=== PATIENT | female | born 1955 | race Asian ===

== ENCOUNTER 2021-03-07 14:17 | Outpatient (REF) | payer BC, SELFPAY ==
--- NOTE | ~2021-03-07 | XR_ITS ---
EXAMINATION: XR HIP, LEFT CLINICAL INFORMATION: Osteoarthritis COMPARISON: May 11, 2015 TECHNIQUE: Two views of the left hip. FINDINGS: There is no evidence of acute fracture or dislocation of the left hip. Left hip joint space is maintained without significant degenerative change. No destructive bony lesion identified. No evidence of femoral head collapse. Osteitis pubis is present. XR/XR hip LT min 2V IMPRESSION: Osteitis pubis. No significant bony abnormality of the left hip identified.
== END 2021-03-07 14:18 | disposition home or self-care (01) ==
LOC: HO.XRAY 14:17
PROVIDERS: PCP Internal Medicine; Visit Provider Internal Medicine
DX: M16.12 Unilateral primary osteoarthritis, left hip (principal)
CPT/HCPCS: 73502

== ENCOUNTER 2021-09-13 15:02 | Outpatient (REF) | payer BC, SELFPAY ==
--- NOTE | ~2021-09-13 | MM_ITS ---
EXAMINATION: MM SCREENING DIGITAL BREAST TOMOSYNTHESIS, BILATERAL CLINICAL INFORMATION: Screening. Asymptomatic. The lifetime risk of breast cancer based on the Tyrer-Cuzick Model is 2%. COMPARISON: Mammography: 07/12/2020, 03/20/2019, 03/05/2018 TECHNIQUE: Digital breast tomosynthesis is performed in both the craniocaudal and mediolateral oblique views along with computer-aided detection (CAD). Synthesized 2D images are generated from the tomosynthesis. FINDINGS: There are scattered areas of fibroglandular density (ACR BI-RADS breast composition Category b). There are no significant masses, abnormal calcifications, or other abnormalities. Parenchymal pattern is similar to prior study. No significant changes. MM/MM tomosynthesis screening BI IMPRESSION: No mammographic evidence of malignancy. ASSESSMENT: BI-RADS 1: Negative RECOMMENDATION: Routine annual mammography screening. This patient's information was entered into a reminder system with a target due date for their next mammogram.
== END 2021-09-13 15:03 | disposition home or self-care (01) ==
LOC: HO.MAMMO 15:02
PROVIDERS: PCP Internal Medicine; Visit Provider Internal Medicine
DX: Z12.31 Encounter for screening mammogram for malignant neoplasm of breast (principal)
CPT/HCPCS: 77063; 77067

== ENCOUNTER 2022-09-18 14:59 | Outpatient (REF) | payer MEDICARE, SELFPAY ==
--- NOTE | ~2022-09-18 | MM_ITS ---
EXAMINATION: MM SCREENING DIGITAL BREAST TOMOSYNTHESIS, BILATERAL CLINICAL INFORMATION: Screening. Asymptomatic. The lifetime risk of breast cancer based on the Tyrer-Cuzick Model is 3%. COMPARISON: Mammography: 09/13/2021, 07/12/2020, 07/20/2019 TECHNIQUE: Digital breast tomosynthesis is performed in both the craniocaudal and mediolateral oblique views along with computer-aided detection (CAD). Synthesized 2D images are generated from the tomosynthesis. FINDINGS: There are scattered areas of fibroglandular density (ACR BI-RADS breast composition Category b). There are no significant masses, abnormal calcifications, or other abnormalities. Parenchymal pattern is similar to prior studies. There is no developing density or architectural abnormality. The axilla and skin contours are unremarkable. No significant changes. MM/MM tomosynthesis screening BI IMPRESSION: No mammographic evidence of malignancy. ASSESSMENT: BI-RADS 1: Negative RECOMMENDATION: Routine annual mammography screening. This patient's information was entered into a reminder system with a target due date for their next mammogram.
== END 2022-09-18 15:00 | disposition home or self-care (01) ==
LOC: HO.MAMMO 14:59
PROVIDERS: PCP Internal Medicine; Visit Provider Internal Medicine
DX: Z12.31 Encounter for screening mammogram for malignant neoplasm of breast (principal)
CPT/HCPCS: 77063; 77067

== ENCOUNTER 2022-09-20 14:33 | Outpatient (REF) | payer MEDICARE, SELFPAY ==
--- NOTE | ~2022-09-20 | XR_ITS ---
EXAMINATION: XR FOOT, RIGHT CLINICAL INFORMATION: Pain COMPARISON: None TECHNIQUE: AP, lateral, and oblique views of the right foot. FINDINGS: Bone alignment is normal. No fracture or dislocation is seen. There is mild arthritis at the first MTP and talar fibular joint with small osteophytes. There is calcaneal spur. XR/XR foot RT min 3V IMPRESSION: Arthritis at the first MTP and talar navicular joints. Plantar calcaneal spur.
== END 2022-09-20 14:34 | disposition home or self-care (01) ==
LOC: HO.XRAY 14:33
PROVIDERS: Visit Provider Internal Medicine
DX: M79.671 Pain in right foot (principal); E11.9 Type 2 diabetes mellitus without complications
CPT/HCPCS: 73630

== ENCOUNTER 2023-02-18 10:33 | Outpatient (REF) | payer MEDICARE, SELFPAY | END 2023-02-18 10:34 | disposition home or self-care (01) | LOC: HO.HOSX 10:33 | PROVIDERS: Visit Provider Orthopaedic Surgery | DX: Z13.89 Encounter for screening for other disorder (principal) ==

== ENCOUNTER 2023-07-03 05:26 | Emergency (ER) | payer MEDICARE, SELFPAY ==
--- NOTE | ~2023-07-03 | XR_ITS ---
EXAMINATION: XR SHOULDER, RIGHT CLINICAL INFORMATION: Pain COMPARISON: None available. TECHNIQUE: Three views of the right shoulder. FINDINGS: No acute fracture or dislocation. Small glenohumeral marginal osteophytes. Small marginal osteophytes along the acromioclavicular joint. Intra-articular calcifications present in the superior aspect of the acromioclavicular joint. Osseous excrescences between the coracoid and clavicle at the expected location of the coracoclavicular ligaments. This may relate to old trauma to these ligaments. Soft tissues otherwise unremarkable. XR/XR shoulder RT min 2V IMPRESSION: * No acute fracture or dislocation. * Mild glenohumeral and acromioclavicular degenerative change. * Degenerative intra-articular debris/calcifications in the acromioclavicular joint.
[2023-07-03 05:26] VITALS: BP 141/79; PULSE 100; RESP 20; TEMP 36.5; O2SAT 98; BMI 22.1
--- NOTE | 2023-07-03 05:52 | PC.NURSE ---
Pt tearful at the bedside. Reports right shoulder pain that radiates down the right arm, neck, and upper back, 10/. Right shoulder pain x 2 years that has worsen since last Saturday and became severe yesterday. Pt arrives wearing a sling and reports inability to move extremity. Radial pulse present. Skin warm and appropriate to color, dry. Right shoulder x-ray ordered. Pending physician twan.
--- NOTE | 2023-07-03 06:17 | ED_ITS ---
HPI - Extremity Problem General Chief complaint: Extremity Injury, Upper Stated complaint: R shoulder pain/neck pain Time Seen by Provider: 07/03/23 06:05 Source: patient Mode of arrival: ambulatory Limitations: no limitations History of Present Illness HPI Narrative: Patient comes to the emergency room accompanied by her . Patient went on vacation and while they were there, patient started developing right-sided neck pain radiating towards the suprascapular area, shoulder and supraclavicular area. Patient states that when she turns her head towards the right ear hurts more. Patient states she has chronic issues with her shoulder. Patient denies any neck rigidity, no fever or chills. Related Data Previous Rx's Medication Instructions Recorded diazepam 2 mg tablet 2 mg PO DAILY PRN muscle spasm #5 07/03/23 tabs tramadol 50 mg tablet 50 mg PO BID PRN pain #7 tabs 07/03/23 Allergies Allergy/AdvReac Type Severity Reaction Status Date / Time No Known Allergies Allergy Unverified 08/18/20 17:53 [No Known Allergies*] Review of Systems Review of Systems: Constitutional : No Weight loss, No Fever, No Chills, No Night Sweats, No Fatigue, No Malaise ENT/Mouth : No Hearing loss, No Ear Pain, No Nasal Congestion, No Sinus Pain, No Hoarseness, No sore throat, No Rhinorrhea, No Swallowing Difficulty Eyes: No Eye Pain, No Swelling, No Redness, No Foreign Body, No Discharge, No Vision Changes Cardiovascular : No Chest Pain, No SOB, No Dyspnea on Exertion, No Orthopnea, No Edema, No Palpitations Respiratory : No Cough, No Sputum, No Wheezing, No Smoke Exposure, No Dyspnea Gastrointestinal : No Nausea, No Vomiting, No Diarrhea, No Constipation, No abdominal Pain, No Hematochezia, No Melena Genitourinary : no irregular bleeding, No Dysuria, No Urinary Frequency, No Hematuria, No Urinary Incontinence, No Urgency, No Flank Pain, No Urinary Flow Changes, No Hesitancy Musculoskeletal : Complaining of chronic right shoulder pain, complaining of new right-sided neck pain worse with head rotation towards the right, complaining of suprascapular and supraclavicular pain No Myalgias, No Joint Swelling Skin : No Skin Lesions, No rash Neuro : No Weakness, No Numbness, No Paresthesias, No Loss of Consciousness, No Dizziness, No Headache Psych : No Anxiety/Panic, No Depression, No SI/HI/AH/VH, No Social Issues, Heme/Lymph: No Bruising, No Bleeding,No Lymphadenopathy Endocrine : No Polyuria, No Polydipsia, No Temperature Intolerance [facility] Past Medical History Medical History (Updated 07/03/23 @ 06:24 by Mireya Zacarias MD) Diabetes Social History Social History Smoked in Last 30 Days: No Use of substances other than those prescribed or required for medical reasons: No Advance Directives: No Advance Directives Information Provided: Yes Physical Exam Vital Signs: Vital Signs: Last Vital Signs Temp 97.7 F 07/03/23 05:26 Pulse 100 07/03/23 05:26 Resp 20 07/03/23 05:26 BP 141/79 H 07/03/23 05:26 Pulse Ox 98 07/03/23 05:26 O2 Del Method Room Air 07/03/23 05:26 BMI result Body Mass Index 22.1 Const: Other: Appearance: Alert. Oriented X3. No acute distress. Eyes: Pupils equal, round and reactive to light. ENT: Pharynx normal. Neck: Normal inspection. Neck supple. No lymph nodes noted. No crepitus CVS: Normal heart rate and rhythm. Pulses normal. Normal S1 and S2 Respiratory: No respiratory distress. Breath sounds normal. No Wheezing. No rales Abdomen: Soft and nontender. No rigidity. No distention. Skin: Skin warm and dry. Normal skin color. Normal skin turgor. Extremities: Patient has pain to palpation over the right shoulder, both anterior posterior and lateral, pain to palpation over the suprascapular area, pain to palpation over the supraclavicular area, patient complaining of worsening pain when she moves her head towards the right Neuro: Oriented X 3. No motor deficit. No sensory deficit. Moving all extremities. No slurred speech. CN 2 through 12 grossly intact Psych: calm, cooperative, normal affect Medications Administered Discontinued Medications Generic Name Dose Route Start Last Admin Trade Name Freq PRN Reason Stop Dose Admin Diazepam 2 mg 07/03/23 06:17 07/03/23 06:30 Diazepam 2 Mg Tablet PO 07/03/23 06:18 2 mg ONCE ONE Administration Ketorolac Tromethamine 60 mg 07/03/23 06:17 08/02/23 06:30 Ketorolac Tromethamine 60 Mg/2 Ml Vial IM 07/03/23 06:18 60 mg ONCE ONE Administration Medical Decision Making Medical Decision Making MDM Narrative: My interpretation of x-ray of the shoulder: No fracture, there seems to be a calcification at the acromioclavicular joint. Patient's pain may be secondary to calcific tendinitis versus bursitis. Also, patient may have new onset torticollis, patient was given 1 dose of IM Toradol and p.o. diazepam. Patient has been taking cyclobenzaprine without any relief. Differential Diagnosis Differential Diagnoses: The differential diagnosis associated with the presentation includes (Tendinitis, bursitis, fracture, dislocation, torticollis) Independent Interpretation I performed an independent interpretation of an: Plain X-Ray Radiology Impression Discussion of test interpretation with radiology: I have reviewed the radiologist's reading. Radiologist Impression: FINDINGS: No acute fracture or dislocation. Small glenohumeral marginal osteophytes. Small marginal osteophytes along the acromioclavicular joint. Intra-articular calcifications present in the superior aspect of the acromioclavicular joint. Osseous excrescences between the coracoid and clavicle at the expected location of the coracoclavicular ligaments.? This may relate to old trauma to these ligaments. Soft tissues otherwise unremarkable. XR/XR shoulder RT min 2V IMPRESSION: *? No acute fracture or dislocation. *? Mild glenohumeral and acromioclavicular degenerative change. *? Degenerative intra-articular debris/calcifications in the acromioclavicular joint. Discharge Plan Discharge Clinical Impression: Chronic pain in right shoulder, Acute torticollis Patient Disposition: Home, Self-Care Instructions: Spasmodic Torticollis (ED), Shoulder Pain (ED) Additional Instructions: Please follow-up with your primary care physician and with your orthopedist tomorrow. You may need an MRI of your shoulder. If you have any worsening or new symptoms, please return to the emergency room or call 911 Prescriptions: New tramadol 50 mg tablet 50 mg PO BID PRN (Reason: pain) Qty: 7 0RF diazepam 2 mg tablet 2 mg PO DAILY PRN (Reason: muscle spasm) Qty: 5 0RF Rx Instructions: Do not mix this medication with cyclobenzaprine Referrals: Joya Reyez PA-C [Physician Employee'S Representative] - 07/04/23
[2023-07-03] MEDS: diazePAM 2 MG TABLET PO (06:30)
[2023-07-03] MEDS: Ketorolac Tromethamine 60 MG/2 ML VIAL IM (06:30)
--- NOTE | 2023-07-03 06:33 | PC.NURSE ---
Pt medicated as ordered. Tolerated well.
== END 2023-07-03 06:58 | disposition home or self-care (01) ==
PROVIDERS: Emergency Provider Emergency Medicine; PCP Internal Medicine
DX: M25.511 Pain in right shoulder (principal); M43.6 Torticollis; M54.2 Cervicalgia
CPT/HCPCS: 73030; 96372; 99284; J1885

== ENCOUNTER 2023-07-09 14:29 | Outpatient (AMB) | payer MEDICARE, SELFPAY ==
--- NOTE | 2023-07-09 14:34 | A.OFFVIS_ITS ---
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 She states that her symptoms have gotten worse over the last 3 years. She reports weakness when lifting her right hand above shoulder height. She has done physical therapy which aggravated her pain. She has also tried Tylenol and anti-inflammatory medicines which gave her minimal relief. The patient was scheduled to have an MRI of her cervical spine or right shoulder. Apparently, an MRI of her lumbar spine was performed instead. She is due to have the correct MRI this Saturday. She has had cortisone injections in the past which gave her minimal relief. Allergies No Known Allergies [No Known Allergies*] Allergy (Unverified 07/09/23 14:43) Medication List - Last Reconciled 07/09/23 by Matt Capellan MD diazepam 2 mg PO DAILY PRN ferrous gluconate 324 mg PO DAILY glipizide ER 10 mg PO DAILY losartan-hydrochlorothiazide 50-12.5 mg 1 tab PO DAILY metformin 1,000 mg PO BID pravastatin 20 mg PO DAILY tramadol 50 mg PO BID PRN PFSH Medical History Diabetes Social History (Updated 07/09/23 @ 14:44 by LAYLA David) Patient Tobacco Use Status: Never used Tobacco Current occupational status: retired Current occupation: right hand dominant Physical Exam Vital Signs: BMI result Body Mass Index 21.9 Const Other: Well-nourished well-developed very friendly female awake alert and oriented x3 in no acute distress Extrem Other: Bilateral upper extremity examination shows good capillary refill, no skin lesions noted, normal sensation light touch Right shoulder examination shows decreased range of motion when compared to her left shoulder, 4+ out of 5 strength with supraspinatus testing, positive impingement signs, tenderness over her acromioclavicular joint, no instability Results Reviewed Results Reviewed: X-rays of the patient's right shoulder show moderate to severe acromioclavicular joint narrowing, type 2 acromion, no acute bony abnormalities Assessment & Plan Assessment & Plan (1) Right shoulder pain: Code(s): M25.511 - Pain in right shoulder Plan Mrs. [place]en[place] presents with right shoulder pain and weakness as well as cervical spine pain most likely due to impingement syndrome as well as possible rotator cuff tearing. Some of the patient's symptoms may be coming from cervical spine pathology as well. She will follow up for her MRI this Saturday as scheduled. I will contact her by phone once the results are available. She will continue with gentle range of motion exercises in the meantime. Feel free to call me at any time should questions regarding her orthopedic management arise. Thank you very much for asking me to see this very friendly patient. I spent 22 minutes in reviewing the patient's records and imaging studies, seeing the patient and documenting in the medical record. Coding Level of Care Code New Pt Level 2 (89058) Diagnoses Right shoulder pain M25.511
[2023-07-09 14:54] VITALS: BMI 21.9
== END 2023-07-09 15:11 | disposition home or self-care (01) ==
PROVIDERS: PCP Internal Medicine; Visit Provider Orthopaedic Surgery
DX: M25.511 Pain in right shoulder (principal)
CPT/HCPCS: 99202

== ENCOUNTER → 2023-07-09 14:29 | Outpatient (BNVA) | payer MEDICARE, SELFPAY | PROVIDERS: PCP Internal Medicine; Visit Provider Orthopaedic Surgery | DX: M25.511 Pain in right shoulder (principal) | CPT/HCPCS: 99202 ==

== ENCOUNTER 2023-09-25 13:40 | Outpatient (REF) | payer MEDICARE, SELFPAY | END 2023-09-25 13:41 | disposition home or self-care (01) | LOC: HO.MAMMO 13:40 | PROVIDERS: PCP Internal Medicine; Visit Provider Internal Medicine | DX: Z12.31 Encounter for screening mammogram for malignant neoplasm of breast (principal) | CPT/HCPCS: 77063; 77067 ==

== ENCOUNTER → 2023-09-25 14:00 | Outpatient (BNV) | payer MEDICARE, SELFPAY | PROVIDERS: PCP Internal Medicine; Visit Provider Radiology Diagnostic Radiology | DX: Z12.31 Encounter for screening mammogram for malignant neoplasm of breast (principal) | CPT/HCPCS: 77063; 77067 ==

== ENCOUNTER 2024-09-10 13:47 | Outpatient (AMB) | payer MEDICARE, SELFPAY ==
--- NOTE | 2024-09-10 13:48 | A.OFFVIS_ITS ---
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 States worse in the cold weather and turns red and white. Pt states it is mostly just her toes and gets a burning sensation and has difficulty standing. Accompanied by: Spouse Allergies No Known Allergies [No Known Allergies*] Allergy (Unverified 09/10/24 13:53) HPI HPI FILENET DEVELOPER: Details: Very pleasant 69-year-old Santy female presents for evaluation regarding pain and discomfort of the lower extremities. Upon discussion with her she has no difficulty ambulating but it is more of a hot poking feeling in her feet. In addition she notes the discoloration during the winter months here as well. She now presents to us for [facility] History Diabetes Social History Patient Tobacco Use Status: Never used Tobacco Current occupational status: retired Current occupation: right hand dominant Review of Systems Const All systems reviewed & are unremarkable except as noted in HPI and below Reports no additional complaints ENT Reports Normal hearing present Card Denies chest pain, Denies chest pain at rest, Denies chest pain with activity and Denies pedal edema Resp Denies cough GI Denies abdominal pain Musc Denies abnormal gait, Denies muscle cramps and Denies radiating pain into limb Skin/Breast Denies skin ulcer and Denies wounds Neuro Reports Normal hearing present and Denies abnormal gait Psych Reports no additional complaints Physical Exam Vital Signs: BMI result Body Mass Index 31.2 Const General: cooperative, healthy appearing and comfortable Orientation/consciousness: oriented to person, oriented to place and oriented to time HEENT Head: Yes normal to inspection Neck Neck: Yes normal visual inspection Carotids: no bruits Chest Chest palpation & inspection: normal inspection of the chest Resp Effort & Inspection: normal respiratory effort and able to speak in complete sentences Auscultation: clear to auscultation bilaterally, no crackles, no rales, no rhonchi and no wheezes Cardio Other: Palpable DP Rate: regular rate Rhythm: regular rhythm Heart sounds: S1 normal heart sound present and S2 normal heart sound present Bruits: no carotid bruits Peripheral pulses: Peripheral pulses 2+ throughout GI Inspection: Yes normal to inspection Skin Wounds: no wounds Hair: normal Neuro General: oriented to person, oriented to place and oriented to time Cranial nerves: Yes CN's II-XII intact bilaterally and Yes Normal hearing present Cognition (Neuro): normal cognition Motor exam (neuro): 5/5 motor strength present throughout Extrem Other: venous exam: No significant superficial varicosities or spider telangiectasias, minimal edema General: No clubbing, No cyanosis and No edema Psych Appearance: grossly normal Mental Status: mental status grossly normal Speech and movement: Normal speech and movement present Assessment & Plan Assessment & Plan (1) Raynauds disease: Code(s): I73.00 - Raynaud's syndrome without gangrene Category: Medical Qualifiers: Raynaud?s-associated gangrene presence: without gangrene Qualified Code(s): I73.00 - Raynaud's syndrome without gangrene Plan: In short the patient may have an element of Raynaud's syndrome. I have discussed the pathophysiology with the patient, inclusive of spasming of the vessels and change in color of digits from white, red, and blue. We have discussed prevention inclusive of protection hand and feet at all times, reduction of caffeine intake, and reduction of stressors. Also smoking cessation may help improve issues. At the current time the patient appears to be stable. Should this persist may need follow-up with Rheumatology and use a calcium channel darlene. The patient will follow up with us on an as-needed basis. (2) Neuropathy: Code(s): G62.9 - Polyneuropathy, unspecified Category: Medical Plan: I think more importantly she may have more of a neuropathy. She complains more of this burning pain which appears to be more related to her neuropathy. She has a longstanding history of diabetes for over 25 years. I did relay this information to the patient should it become more of an issue may benefit from use of gabapentin and or referral to a neurologist. She once again she will follow up with us on an as-needed basis. Thank you for allowing us to assist in her care. Coding Level of Care Code New Pt Level 4 (06445) Diagnoses Raynaud's disease without gangrene I73.00 Raynaud?s-associated gangrene presence: without gangrene Neuropathy G62.9
[2024-09-10 13:51] VITALS: BMI 31.2
== END 2024-09-10 14:18 | disposition home or self-care (01) ==
PROVIDERS: PCP Internal Medicine; Visit Provider Surgery Vascular Surgery
DX: I73.00 Raynaud's syndrome without gangrene (principal); G62.9 Polyneuropathy, unspecified
CPT/HCPCS: 99204

== ENCOUNTER → 2024-09-10 13:47 | Outpatient (BNVA) | payer MEDICARE, SELFPAY | PROVIDERS: PCP Internal Medicine; Visit Provider Surgery Vascular Surgery | DX: I73.00 Raynaud's syndrome without gangrene (principal); G62.9 Polyneuropathy, unspecified | CPT/HCPCS: 99202 ==

== ENCOUNTER 2024-09-30 13:47 | Outpatient (REF) | payer MEDICARE, SELFPAY ==
--- NOTE | ~2024-09-30 | MM_ITS ---
EXAMINATION: MM SCREENING DIGITAL BREAST TOMOSYNTHESIS, BILATERAL CLINICAL INFORMATION: Screening. Asymptomatic. COMPARISON: Mammography: Comparison is made with available priors TECHNIQUE: Digital breast mammography with tomosynthesis is performed in both the craniocaudal and mediolateral oblique views along with computer-aided detection (CAD). FINDINGS: There are scattered areas of fibroglandular density (ACR BI-RADS breast composition Category b). There are no significant masses, abnormal calcifications, or other abnormalities. MM/MM tomosynthesis screening BI IMPRESSION: No mammographic evidence of malignancy. ASSESSMENT: BI-RADS BI-RADS 1 - Negative RECOMMENDATION: Routine annual mammography screening. 1 year F/U This examination should not preclude the clinical evaluation of a suspicious palpable abnormality. This patient's information was entered into a reminder system with a target due date for their next mammogram. Electronically signed by: Asha Smith DO 10/09/2024 09:35 AM MELISSA
== END 2024-09-30 13:48 | disposition home or self-care (01) ==
LOC: HO.MAMMO 13:47
PROVIDERS: PCP Internal Medicine; Visit Provider Internal Medicine
DX: Z12.31 Encounter for screening mammogram for malignant neoplasm of breast (principal)
CPT/HCPCS: 77063; 77067

== ENCOUNTER → 2024-09-30 14:00 | Outpatient (BNV) | payer MEDICARE, SELFPAY | PROVIDERS: PCP Internal Medicine; Visit Provider Internal Medicine | DX: Z12.31 Encounter for screening mammogram for malignant neoplasm of breast (principal) | CPT/HCPCS: 77063; 77067 ==

== ENCOUNTER 2025-07-06 14:46 | Outpatient (AMB) | payer BC, SELFPAY ==
--- OUTSIDE RECORDS SUMMARY | 2024-06-02 11:30 | XMS_ITS ---
Author Organization Mirza Olsen III, MD Address [address] [facility] [facility] [address] Care Team Providers Care Ammonia Still Operator Name Role Phone Seble MCLAIN, [facility] Primary Care Provider Mirza Russo Unavailable [phone] Allergies Allergen (clinical drug ingredient) Drug/Non Drug [...] Date Provider Diagnosis Mirza Olsen III, MD [address] [place] [address] [place] [address] 06/02/2024 Mirza Olsen Anemia, unspecified type D64.9 ; Hypothyroidism, unspecified type E03.9 ; Pure hypercholesterolemia, unspecified E78.00 and Type 2 diabetes mellitus without complication, unspecified whether termite helper insulin use E11.9 Assessments Encounter Date Diagnosis [...] 2 diabetes mellitus without complication, unspecified whether care home insulin use (ICD-10 - E11.9) She will [...] OV Provider Name:Mirza Olsen, 09/14/2025 02:30:00 PM, [address] [place] [address] DENIS GAUTAM, [place], [address], Progress Notes * SNOW PETERSON:1955 (69 yo F)Acc No.[id number]:06/02/2024 Patient: VICENTE CALL Provider: Tabby Olsen MD :1955 A ge:69 Y S ex:Female Date:06/02/2024 Address:[address] [place], [place] [phone] Pcp:Dari Pruett MD Subjective: * Chief Complaints: [...] ocation of provider rendering services: { ...} [address] [place] [address] [place] [address] L ocation of patient: avel narvaez listed [...] n onsmoker 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 She is [...] 2 diabetes mellitus without complication, unspecified whether termite helper insulin use - E11.9, She will continue [...] Date: 06/02/2024 Generated for Vaishnavi delaney/Valentin/Wilda on: 07/06/2025 03:20 PM EDT History and Physical Notes * HPI (History of Present Illness) Category Sub-Category Detail Notes Telehealth Location of [facility] rendering services:: {...} [address] [facility] [address] [place] [address] Location of patient:: address listed in demographics [...]
--- NOTE | 2025-07-06 14:50 | HO.NEPHOV_ITS ---
Vital Signs 07/06/25 14:51 Height 5 ft Weight 115 lb BMI 22.5 BP 88/52 L Blood Pressure Location Lt brachial Position Sitting Pulse 103 H Pulse Source Pulse Oximeter Pulse Oximetry (%) 97 Oxygen Delivery Method Room Air Intake Visit Reasons: ENP: CKD/ Conf Nuclear Equipment Research Engineer Required: No Accompanied by: Spouse Allergies No Known Allergies (No Known Allergies*) Allergy (Verified 07/06/25 14:54) Medication List - Last Reconciled 07/06/25 by Stefan Vu MD aspirin 81 mg PO DAILY cholecalciferol (vitamin D3) 25 mcg PO DAILY cyanocobalamin (vitamin B-12) ER 1,000 mcg PO DAILY famotidine 40 mg PO DAILY ferrous gluconate 324 mg PO DAILY glipizide ER 5 mg PO DAILY losartan-hydrochlorothiazide 100-12.5 mg 1 tab PO DAILY metformin 1,000 mg PO BID omeprazole 20 mg PO DAILY pravastatin 40 mg PO DAILY HPI Comments Details: The patient is a 70-year-old female presenting with chronic kidney disease. She has a long-standing history of diabetes mellitus since 1996, which has been managed with dietary changes and medications. Her kidney function has deteriorated from 56% in September last year to 42% in June this year, The patient also has hypertension, treated with losartan and hydrochlorothiazide. Her blood pressure was recently recorded at 88/52 mmHg, She used to be on losartan 25 mg which was recently increased to 100 mg along with HCTZ 12.5 mg. She complains of fatigue and low energy levels, attributing these symptoms to dietary restrictions and low blood pressure. She also experiences back pain, managed with Tylenol as needed. [facility] Medical History Diabetes Social History Patient Tobacco Use Status: Never used Tobacco Current occupational status: retired Current occupation: right hand dominant Review of Systems Const Denies anorexia, Denies fever(s) and Denies weakness Eyes Denies blurry vision Card Denies no additional complaints and Denies dyspnea Resp Reports no additional complaints, Reports cough and Denies dyspnea GI Denies melena and Denies diarrhea Denies hematuria Musc Denies tingling Skin/Breast Denies rash Neuro Denies focal weakness, Denies tingling, Denies tremor(s) and Denies weakness Physical Exam Vital Signs: Last Vital Signs Pulse 103 H 07/06/25 14:51 BP 88/52 L 07/06/25 14:51 Pulse Ox 97 07/06/25 14:51 Oxygen Delivery Method Room Air 07/06/25 14:51 BMI result Body Mass Index 22.5 Const General: comfortable Nutritional Appearance: well nourished Orientation/consciousness: patient oriented x3 HEENT Head: No normal to inspection Mouth: moist mucous membranes Neck Neck: Yes supple and Yes no JVD Resp Auscultation: clear to auscultation bilaterally and no rales Cardio Jugular venous distension: no JVD Palpation: no palpable S3 and no palpable S4 Heart sounds: no rubs GI Palpation (GI): Soft to palpation and nontender Percussion: No Fluid wave present General: Yes no CVA tenderness Back/Spine/Pelvis Back: no CVA tenderness Skin General skin exam: no rashes or lesions noted Neuro General: patient oriented x3 Extrem General: Yes no pedal edema and No clubbing Results Reviewed Results Reviewed: September 2024. Serum creatinine 1.09 March 2025 serum creatinine 1.19. June 2025 serum creatinine 1.36 with a EGFR of 42 mL/minute Hemoglobin 10.0. MCV 85 FL Urine albumin creatinine ratio less than 4. A1c 6.5% June 2025 Assessment & Plan Assessment & Plan (1) CKD (chronic kidney disease): Code(s): N18.9 - Chronic kidney disease, unspecified Category: Medical Plan: CKD 3 most likely due to underlying diabetic kidney disease. She probably has a component of acute kidney injury most likely due to hypoperfusion. No reason to believe that she has any active glomerular nephritis or interstitial disease at this time. Obstructive uropathy seems unlikely. Hypoperfusion most likely due to relatively low blood pressure as well as the u se of ARB with HCTZ. (2) Anemia: Comment: Multifactorial. Rule out iron deficiency / rule out erythropoietin deficiency Code(s): D64.9 - Anemia, unspecified Category: Medical Plan Stop losartan/HCTZ 100/12.5. Optimize blood pressure. Restart losartan 25 mg and monitor blood pressure. Continue to avoid nephrotoxic agents including NSAIDs. Increase p.o. fluid intake. Further workup will depend on the outcome of the baseline investigations as ordered. She has anemia. I have ordered iron studies along with B12 and folate. If hemoglobin drops less than 9 grams/deciliter I will arrange for erythropoietin replacement therapy. He is on both omeprazole and famotidine. With your permission I will discontinue famotidine and continue with omeprazole. I have answered all their questions and we will be happy to follow along with the team. Thank you Orders: Orders Basic Metabolic Panel 3 Weeks N18.9 - Chronic kidney disease, unspecified IRON PROFILE 3 Weeks D64.9 - Anemia, unspecified Ferritin 3 Weeks D64.9 - Anemia, unspecified Vitamin B12 and Folate 3 Weeks D64.9 - Anemia, unspecified Complete Blood Count Auto Diff 3 Weeks D64.9 - Anemia, unspecified Medications: New losartan 25 mg PO DAILY 30 tabs 1RF Coding Level of Care Code New Pt Level 4 (77424) Diagnoses CKD (chronic kidney disease) N18.9 Anemia D64.9
[2025-07-06 14:51] VITALS: BP 88/52; PULSE 103; O2SAT 97; BMI 22.5
--- OUTSIDE RECORDS SUMMARY | 2025-07-06 15:20 | XMS_ITS | Patient Health Record ---
Author Organization [facility] Address [address] [place] [address] Care Team Providers Care Butter Liquefier Name Role Phone Dari Pruett Primary Care Provider Unavailab Mirza Esparza Unavailable [phone] Allergies Allergen (clinical drug ingredient) Drug/Non Drug Allergy documented on EMR Reaction Allergy Type Onset Date Status metformin Metformin HCl DIARRHEA Drug Allergy Act chico lisinopril Lisinopril COUGH Drug Allergy Activ e Reason For Referral No Information Medications Medication SIG (Take, Route, Frequency, Duration) Notes Start Date End Date Status Losartan Potassium 50 MG TAKE 1 TABLET B Y MOUTH EVERY DAY Oral for 90 Active Triamcinolone Acetonide 0.5 % APPLY TOPICALLY TWICE DAILY External for 30 Active Vitamin B-12 1000 MCG TAKE 1 TABLET BY M OUTH EVERY DAY Oral for 90 Active Pravastatin Sodium 20 MG TAKE 1 TABLET B Y MOUTH EVERY EVENING Oral for 90 Active Omeprazole 20 MG TAKE ONE CAPSULE BY MOUTH EVERY DAY Oral Active metFORMIN HCl ER 750 MG 1 tablet with ev ening meal Orally BID Active Levothyroxine Sodium 25 MCG 1 tablet on an empty stomach in the morning Orally Once a day Active Januvia 100 MG 1 tablet Orally Once a day NEEDED Active Ferrous Sulfate 324 (65 Fe) MG TAKE 1 TABLET BY MOUTH EVERY DAY Oral for 90 Active Social History Tobacco Use: Social History Observation Description Date Details (start date - stop date) Never Smoker NA - NA Tobacco Use/Smoking Question Answer Notes Patient is a nonsmoker Alcohol Screen Question Answer Notes Did you have a drink containing alcohol in the p ast year? No Points 0 Interpretation Negative Section Notes: Vegetarian/no eggs, nonsmoke r, no alcohol Vegetarian/no eggs, nonsmoke r, no alcohol Problems Problem Type SNOMED Code ICD Code Onset Dates Problem Status W/U Status Risk Notes Problem 069817800 Encounter for screening for malignant neoplasm of colon (Z12.11) Active confirmed Problem 15371303 Abdominal pain, epigastric (R10.13) Active confirmed Problem 413421156 Gastroesophageal reflux disease without esophagitis (K21.9) Active confirmed Problem 996740694 Gastroesophageal reflux disease, esophagitis presence not specified (K21.9) Active confirmed Plan Of Treatment Future Test Test Name Order Date UPPER GI ENDOSCOPY 07/22/2018 COLONOSCOPY 07/22/2018 Next Appt Details Provider Name:Mirza Palencia , 07/27/2025 02:00:00 PM, [address] [place] [address], [address], [place], [address], Insurance Providers Payer Name Payer Address Payer Phone Subscriber Number Group Number Insured Name Patient Relationship to Insured Coverage Start Date Coverage End Date [employer] [address] [place] [address] [id number] VICENTE PETERSON Self - patient is the insured Medical (General) History Medical History History ICD Code NIDDM Hypertension Denies [place],CVA,Lung disease,renal disease GERD--EGD in August revealed only a small hiatal hernia, benign proximal gastric polyps, and mild gastritis--there was no evidence of H. pylori, significant esophagitis, nor Mccarthy's esophagus Negative screening colonosco py in 2005--diverticulosis and internal hemorrhoids; negative limited colonoscopy in August of 2018 to only the sigmoid colon due to inability to advance the scope beyond this--a followup CT colonography on the same day was unremarkable Hyperlipidemia Neg. abdominal ultrasound in 2017 Surgical History Surgery Date(Month/Year) Left patella knee surgery 1996 [facility] Cataracts
== END 2025-07-06 15:27 | disposition home or self-care (01) ==
LOC: HO.HKA 14:47
PROVIDERS: PCP Internal Medicine; Visit Provider Internal Medicine Hypertension Specialist
DX: N18.9 Chronic kidney disease, unspecified (principal); D64.9 Anemia, unspecified
CPT/HCPCS: 99204

== ENCOUNTER 2025-07-27 15:06 | Outpatient (REF) | payer BC, SELFPAY ==
--- OUTSIDE RECORDS SUMMARY | 2024-06-02 11:30 | XMS_ITS ---
Author Organization Mirza Olsen III, MD Address [address] [place] [address] Care Team Providers Care Monotypist Name Role Phone Seble MCLAIN, [facility] Primary Care Provider Mirza Russo Unavailable [phone] Allergies Allergen (clinical drug ingredient) Drug/Non Drug [...] Date Provider Diagnosis Mirza Olsen III, MD [address] [place] [address] [place] [address] 06/02/2024 Mirza Olsen Anemia, unspecified type D64.9 ; Hypothyroidism, unspecified type E03.9 ; Pure hypercholesterolemia, unspecified E78.00 and Type 2 diabetes mellitus without complication, unspecified whether pc analyst insulin use E11.9 Assessments Encounter Date Diagnosis [...] 2 diabetes mellitus without complication, unspecified whether usp insulin use (ICD-10 - E11.9) She will [...] OV Provider Name:Mirza Olsen, 09/14/2025 02:30:00 PM, [address] [place] [address] DENIS GAUTAM, [place], [address], Progress Notes * SNOW PETERSON:1955 (69 yo F)Acc No.[id number]:06/02/2024 Patient: VICENTE CALL Provider: Tabby Olsen MD :1955 A ge:69 Y S ex:Female Date:06/02/2024 Address:[address] [place], [place] [id number] Pcp:Dari Pruett MD Subjective: * Chief Complaints: [...] ocation of provider rendering services: { ...} [address] [place] [address] [place] [address] L ocation of patient: avel narvaez listed [...] n onsmoker 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 She is for [...] 2 diabetes mellitus without complication, unspecified whether pc analyst insulin use - E11.9, She will continue [...] Date: 06/02/2024 Generated for Vaishnavi delaney/Valentin/Wilda on: 07/27/2025 04:03 PM EDT History and Physical Notes * HPI (History of Present Illness) Category Sub-Category Detail Notes Telehealth Location of [facility] rendering services:: {...} [address] [facility] [address] [place] [address] Location of patient:: address listed in demographics [...]
--- OUTSIDE RECORDS SUMMARY | 2024-10-05 10:30 | XMS_ITS ---
Author Organization Mirza Olsen III, MD Address [address] [place] [address] Care Team Providers Care Barrel Leveler Name Role Phone Seble MCLAIN, [facility] Primary Care Provider Mirza Russo Unavailable [phone] Allergies Allergen (clinical drug ingredient) Drug/Non Drug Allergy documented on EMR Reaction Allergy Type Onset Date Status metformin Metformin Unknown Drug Allergy Active lisinopril Lisinopril Unknown Drug Allergy Activ e ferrous sulfate Ferrous Sulfate Unknown Drug Allergy Active Results Component Value Reference Range Notes PROFILE, RANDOM (COMPREHENSI VE METABOLIC) Reviewed date:03/09/2025 09:33:49 AM Interpretation: Performing Lab: Notes/Report: CBC WITH AUTO DIFF Reviewed date:03/09/2025 09:33:57 AM Interpretation: Performing Lab: Notes/Report: RETIC Reviewed date:03/09/2025 09:34:15 AM Interpretation: Performing Lab: Notes/Report: Ferritin Reviewed date:03/09/2025 09:34:26 AM Interpretation: Performing Lab: Notes/Report: REASON FOR VISIT Iron deficiency anemia, Hypothyroidism, Hyperlipidemia Medications Medication SIG (Take, Route, Frequency, Duration) Notes Start Date End Date Status Biotin 5000 MCG 1 capsule Orally Onc e a day Active Omeprazole 20 MG 1 capsule 30 minutes before morning meal Orally Once a day Active Januvia 100 MG 1 tablet Orally Once a day Active Ferrous Gluconate 324 (38 Fe) MG 1 tablet Orally Once a day Active Amitriptyline HCl 10 MG 1 tablet at bedt angela Orally Once a day Active Losartan Potassium-HCTZ 100-12.5 MG TAKE 1 TABLET BY MOUTH EVERY DAY Oral Active metFORMIN HCl 1000 MG Oral Active [facility] Vitamin B-12 1000 MCG TAKE 1 TABLET BY MOUTH EVERY DAY Oral Active Pravastatin Sodium 20 MG Oral Active glipiZIDE ER 5 MG 1 tablet with food Orally Once a day Active Social History Tobacco Use: Social History Observation Description Date Details (start date - stop date) Never Smoker NA - NA Sex Assigned At : Social History Observation Description Sex Assigned At Female Tobacco Use/Smoking Question Answer Notes Patient is a nonsmoker Vital Signs Temperature 97.3 degrees Fahrenheit 10/05/20 24 Blood pressure systolic 123 mm Hg 10/05/20 24 Blood pressure diastolic 67 mm Hg 024 Heart Rate 96 /min 10/05/2024 Height 58.5 in 10/05/2024 Weight 116 lbs 10/05/2024 BMI 23.83 kg/m2 10/05/2024 Encounters Encounter Location Date Provider Diagnosis Mirza Olsen III, MD [address] [place] [address] [place] [address] 10/05/2024 Mirza Olsen Anemia, unspecified type D64.9 ; Type 2 diabetes mellitus without complication, unspecified whether mcc insulin use E11.9 ; Hypothyroidism, unspecified type E03.9 and Pure hypercholesterolemia, unspecified E78.00 Assessments Encounter Date Diagnosis (ICD Code) Assessment Notes Treatment Notes Treatment Clinical Notes 10/05/2024 Anemia, unspecified type (ICD-10 - D64.9) The old records of the colonoscopy have not beenn obtained. She will continue on ferrous gluconate.She likely has anemia of chronic disease combined with mild gastrointestinal blood loss.Continued on the iron 10/05/2024 Type 2 diabetes mellitus without complication, unspecified whether mcc insulin use (ICD-10 - E11.9) Her diabetes has been stable and she is compliant with her medication. 10/05/2024 Hypothyroidism, unspecified type (ICD-10 - E03.9) She appears to be euthyroid and will continue on current medications. 10/05/2024 Pure hypercholesterolem ia, unspecified (ICD-10 - E78.00) I recommended that she maintain her weight at this level and have her lipids checked 2 or 3 times a year. Plan Of Treatment Medication Medication Name Sig Start Date Stop Date Notes Biotin 5000 MCG 1 capsule Orally Onc e a day Omeprazole 20 MG 1 capsule 30 minutes before morning meal Orally Once a day Januvia 100 MG 1 tablet Orally Once a day Ferrous Gluconate 324 (38 Fe) MG 1 tablet Orally Once a da y Amitriptyline HCl 10 MG 1 tablet at bedt angela Orally Once a day Losartan Potassium-HCTZ 100- 12.5 MG TAKE 1 TABLET BY MOUTH EVERY DAY Oral metFORMIN HCl 1000 MG Oral [facility] Vitamin B-12 1000 MCG TAKE 1 TABLET BY MOUTH EVERY DAY Oral Pravastatin Sodium 20 MG Oral glipiZIDE ER 5 MG 1 tablet with food O rally Once a day Next Appt Details Follow Up: 5 M, Reason: OV Provider Name:Mirza Olsen, 09/14/2025 02:30:00 PM, [address] [place] [address], [address], [address], Progress Notes * CASTRO PETERSONIDOB:1955 (69 yo F)Acc No.[id number]:10/05/2024 Progress Notes Patient: VICENTE CALL Provider: Tabby Olsen MD :1955 A ge:69 Y S ex:Female Date:10/05/2024 Address:[address] [place] [address] Pcp:Dari Pruett MD Subjective: * Chief Complaints: * I julio deficiency anemiaHypothyroidismHyperlipidemia * HPI: C OVID-19 Screening: She was seen in consultation in May of this year for iron deficiency anemia. She has been on ferrous sulfate. Her blood work was reviewed with her. She has no new complaints. Her thyroid disease and diabetes are well controlled. On September 29, 2024 with a white blood cell count was 11,000 with a normal differential hemoglobin 10.5 hematocrit 33% mean cell volume 84 platelets of 87 and ferritin 17 which was an increase from 15. Questions H ave you experienced fever, chills, [...] enies. D iarrhea d enies. H eartburn o ccasional. N ausea d enies. 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 * Medications: T akingAmitriptyline HCl 10 MG Tablet 1 tablet at bedtime Orally Once a day metFORMIN HCl 1000 MG Tablet Oral Losartan Potassium-HCTZ 100-12.5 MG Tablet TAKE 1 TABLET BY MOUTH EVERY DAY Oral Pravastatin Sodium 20 MG Tablet Oral [facility] Vitamin B-12 1000 MCG Tablet TAKE 1 TABLET BY MOUTH EVERY DAY Oral glipiZIDE ER 5 MG Tablet Extended Release 24 Hour 1 tablet with food Orally Once a day Ferrous Gluconate 324 (38 Fe) MG Tablet 1 tablet Orally Once a day Januvia 100 MG Tablet 1 tablet Orally Once a day Omeprazole 20 MG Capsule Delayed Release 1 capsule 30 minutes before morning meal Orally Once a day Biotin 5000 MCG Capsule 1 capsule Orally Once a day Medication List reviewed and reconciled with the patientTaking Amitriptyline HCl 10 MG Tablet 1 tablet at bedtime Orally Once a day Taking metFORMIN HCl 1000 MG Tablet Oral Taking Losartan Potassium-HCTZ 100-12.5 MG Tablet TAKE 1 TABLET BY MOUTH EVERY DAY Oral Taking Pravastatin Sodium 20 MG Tablet Oral Taking [facility] Vitamin B-12 1000 MCG Tablet TAKE 1 TABLET BY MOUTH EVERY DAY Oral Taking glipiZIDE ER 5 MG Tablet Extended Release 24 Hour 1 tablet with food Orally Once a day Taking Ferrous Gluconate 324 (38 Fe) MG Tablet 1 tablet Orally Once a day Taking Januvia 100 MG Tablet 1 tablet Orally Once a day Taking Omeprazole 20 MG Capsule Delayed Release 1 capsule 30 minutes before morning meal Orally Once a day Taking Biotin 5000 MCG Capsule 1 capsule Orally Once a day Medication List reviewed and reconciled with the patient * Allergies: M etformin: Side EffectsLisinopril: Side EffectsFerrous Sulfate: Side Effectsno[Allergies Verified] Objective: * Vitals: H t: 58.5, Wt:116, BMI:23.83, BP:123/67, HR:96, Temp:97.3, Ht-cm: 148.59, Wt-k.62. * Examination: G eneral Examination: GENERAL APPEARANCE: p leasant, well nourished, well developed, in no acute distress, calm and relaxed, woman. HEAD: a traumatic, normocephalic. EYES: e sandip, perrla, anicteric, conjugate. EARS: n ormal. NOSE: s eptum intact. ORAL CAVITY: n ormal, unremarkable. NECK/THYROID: n o jugular venous distention, no carotid bruit, thyroid normal. LYMPH NODES: n o enlarged lymph nodes,spleen normal. SKIN: n o suspicious lesions, anicteric. HEART: n o clicks, gallops, murmurs, or rubs, regular rhythm, S1, S2 normal, no s3, or vascular bruits. LUNGS: c lear to auscultation . BREASTS: N ot examined. ABDOMEN: b owel sounds normal, [...] 1. A nemia, unspecified type - D64.9 (Primary) N otes :The old records of the colonoscopy have not beenn obtained. She will continue on ferrous gluconate.She likely has anemia of chronic disease combined with mild gastrointestinal blood loss.Continued on the iron 2 . T ype 2 diabetes mellitus without complication, unspecified whether mcc insulin use - E11.9 N otes :Her diabetes has been stable and she is compliant with her medication. 3 . H ypothyroidism, unspecified type - E03.9 N otes :She appears to be euthyroid and will continue on current medications. 4 . P ure hypercholesterolemia, unspecified - E78.00 N otes :I recommended that she maintain her weight at this level and have her lipids checked 2 or 3 times a year. Plan: * Treatment: 2. 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 O thers Continue metFORMIN HCl Tablet, 1000 [...] without too much effort. T reatment Goals B lood Sugars less than < 115, HbA1C < 7.0. B arriers n o barriers. S elf-Managment Goals I ncrease exercise to 3 times a week for 30 mins, Work on weight loss, with a goal of losing 1 lb per week. * Follow Up: 5 M (Reason: OV) * Images: * Sign off status: Completed true * Provider: Tabby Olsen MD Date: 1 12/05/2023 Generated for Printi ng/Giovanag/eTransmitting on: 0 07/27/2025 04:03 PM EDT History and Physical Notes * HPI (History of Present Illness) Category Sub-Category Detail Notes COVID-19 Screening Questions Have you had any new onset fever, chills, cough, congestion, sore throat, shortness of breath, muscle aches?: No Have you been exposed to the virus withi n the last 10 days?: No Have you travelled internationally in last 10 days?: No Have you been exposed to COVID-19 in the past?: No Examination Category Sub-Category Detail Notes General Examination GENERAL APPEARANCE: pleasant , well nourished, well developed, in no acute distress, calm and relaxed, woman HEAD: atraumatic, normocep halic EYES: eomi, perrla, anicte lowell, conjugate EARS: normal NOSE: septum intact NECK/THYROID: no [...] lesion s, anicteric PERIPHERAL PULSES: normal BREASTS: Not examined MUSCULOSKELETAL: extremities unremark able, no clubbing, cyanosis or edema LYMPH NODES: no enlarged lymph no deborah,spleen normal RECTAL EXAM: not examined PSYCH: alert, oriented ORAL CAVITY: normal, unremarkable
--- OUTSIDE RECORDS SUMMARY | 2025-03-16 10:00 | XMS_ITS ---
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 insulin use E11.9 ; Pure hypercholesterolemia, unspecified [...] 2 diabetes mellitus without complication, unspecified whether correction insulin use (ICD-10 - E11.9) She was [...] labs Provider Name:Mirza Olsen, 09/14/2025 02:30:00 PM, [address] [place] [address], [address], Progress Notes * NICHOLAS CASTROIDOB:1955 (69 yo F)Acc No.[id number]:03/16/2025 Progress Notes Patient: VICENTE CALL Provider: Tabby Olsen MD :1955 A ge:69 Y S ex:Female Date:03/16/2025 Address:[address] [place] [address] Pcp:Dari Pruett MD Subjective: * Chief Complaints: [...] n onsmoker 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 She is for [...] 2 diabetes mellitus without complication, unspecified whether correction insulin use - E11.9 N otes :She [...] 2 diabetes mellitus without complication, unspecified whether correction insulin use L AB: PROFILE, FASTING (COMPREHENSIVE [...] 03/16/2025 Generated for Vaishnavi delaney/Valentin/Annemarieitting on: 0 07/27/2025 04:03 PM EDT History [...]
[2025-07-27 15:27] LABS: MANUAL DIFF FLAG NO
--- OUTSIDE RECORDS SUMMARY | 2025-07-27 16:03 | XMS_ITS | Patient Health Record ---
Author Organization [facility] Address [address] [place] [address] Care Team Providers Care Assembler Final Name Role Phone Dari Pruett Primary Care Provider UnavailMirza Mae Unavailable [phone] Allergies Allergen (clinical drug ingredient) Drug/Non Drug Allergy documented on EMR Reaction Allergy Type Onset Date Status metformin Metformin HCl DIARRHEA Drug Allergy Act chcio lisinopril Lisinopril COUGH Drug Allergy Activ e [...] OUTH EVERY DAY Oral for 90 Active Famotidine 40 MG 1 tablet Orally Twic e a day--every morning and every late afternoon/early evening for 30 days 07/27/2025 Active Losartan Potassium 25 MG 1 tablet Orally Once a day Active metFORMIN HCl ER (MOD) 1000 MG 1 tablet with evening meal Orally Once a day Active Omeprazole 20 MG TAKE ONE CAPSULE BY MOUTH EVERY DAY Oral Active Januvia 100 MG 1 tablet Orally Once a day NEEDED Active Ferrous Sulfate 324 (65 Fe) MG TAKE 1 TABLET BY MOUTH EVERY DAY Oral for 90 Active Aspirin 81 81 MG 1 tablet Orally Once a day Active Vitamin D-3 25 MCG (1000 UT) 1 capsule O rally Once a day Active glipiZIDE ER 5 MG 1 tablet with food Orally Once a day Active Immunizations Vaccine Route Administration Date Status Comme nts Influenza Unknown 08/11/2024 Administered Social History Tobacco Use: Social History Observation [...] alcohol Vegetarian/no eggs, nonsmoke r, no alcohol Vegetarian/no eggs, nonsmoke r, no alcohol Problems Problem Type SNOMED Code ICD Code Onset Dates Problem Status W/U Status Risk Notes Problem 537460040 Encounter for screening for malignant neoplasm of colon (Z12.11) Active confirmed Problem 61912789 Abdominal pain, epigastric (R10.13) Active confirmed Problem 842097209 Gastroesophageal reflux disease without esophagitis (K21.9) Active confirmed Problem 077955767 Gastroesophageal reflux disease, esophagitis presence not specified (K21.9) Active confirmed Problem Anemia (796718005) Anemia (D64.9) Active confir med Problem Gastroesophageal reflux disease (045558680) GERD (gastroesophageal reflux disease) (K21.9) Active confirmed Problem Epigastric burni ng sensation (R10.13) Active confirmed Vital Signs Temperature 97.7 degrees Fahrenheit 07/27/2025 Blood pressure diastolic 01 mm Hg 07/27/2025 Height 59 in 07/27/2025 Blood pressure systolic 001 mm Hg 07/27/2025 Weight 117.6 lbs 07/27/2025 BMI 23.75 kg/m2 07/27/2025 Encounters Encounter Location Date Provider Diagnosis [facility] [address] [facility] [address] [place] [id number] 07/27/2025 Mirza Palencia Anemia D64.9 ; GERD [...] stop omeprazole. She describes that when her balance screwhead polisher had told her to stop the famotidine she had also been on omeprazole at that time and he had advised her that she did not need both medications at that time. I advised her that I think that was a quite reasonable recommendation. Prior to increasing the dose of omeprazole to 40 mg daily, which the balance screwhead polisher may not want given her renal insufficiency, [...] stop omeprazole. She describes that when her balance screwhead polisher had told her to stop the famotidine she had also been on omeprazole at that time and he had advised her that she did not need both medications at that time. I advised her that I think that was a quite reasonable recommendation. Prior to increasing the dose of omeprazole to 40 mg daily, which the balance screwhead polisher may not want given her renal insufficiency, [...] stop omeprazole. She describes that when her balance screwhead polisher had told her to stop the famotidine she had also been on omeprazole at that time and he had advised her that she did not need both medications at that time. I advised her that I think that was a quite reasonable recommendation. Prior to increasing the dose of omeprazole to 40 mg daily, which the balance screwhead polisher may not want given her renal insufficiency, [...] advised of her progress. Plan Of Treatment Pending Test Test Name Order Date LIVER PROFILE 07/27/2025 IRON + IBC (FE) 07/27/2025 CBC w DIFF 07/27/2025 Ferritin 07/27/2025 Vitamin B12 and Folate 07/27/2025 US abdomen complete 07/27/2025 Future Test Test Name Order Date UPPER GI ENDOSCOPY 07/22/2018 COLONOSCOPY 07/22/2018 Next Appt Details Provider Name:Mirza Hubbard Palencia , 10/26/2025 02:40:00 PM, [address] [place] [address], [address], [place], [address], Insurance Providers Payer Name Payer Address Payer Phone Subscriber Number Group Number Insured Name Patient Relationship to Insured Coverage Start Date Coverage End Date [facility] [address] [place] [address] [id number] ANA PETERSON Self - patient is the insured Medical (General) History Medical History History ICD Code NIDDM Hypertension Denies [place],CVA,Lung disease,renal disease GERD- EGD in August 18 revealed only a small hiatal hernia, benign proximal gastric polyps, and mild gastritis- there was no evidence of H. pylori, significant esophagitis, nor Mccarthy's esophagus Negative screening colonosco py in 2005- diverticulosis and internal hemorrhoids; negative limited colonoscopy in August of 2018 to only the sigmoid colon due to inability to advance the scope beyond this- a followup CT colonography on the same day was unremarkable Hyperlipidemia Neg. abdominal ultrasound in 2018 Surgical History Surgery Date(Month/Year) Cataracts CAROL Left patella knee surgery 1997
--- OUTSIDE RECORDS SUMMARY | 2025-07-27 16:04 | XMS_ITS | Patient Health Record ---
Author Organization Mirza Olsen III, MD Address [address] [place] [address] Care Team Providers Care Fabrication Welder Name Role Phone Seble MCLAIN, [facility] Primary Care Provider Mirza Russo Unavailable [phone] Allergies Allergen (clinical drug ingredient) Drug/Non Drug [...] date:03/09/2025 09:34:26 AM Interpretation: Performing Lab: Notes/Report: Reason For Referral No Information Medications Medication SIG (Take, Route, Frequency, Duration) Notes Start Date End Date Status Pravastatin Sodium 20 MG Oral Active Losartan Potassium-HCTZ 100-12.5 MG TAKE 1 TABLET BY MOUTH EVERY DAY Oral Active metFORMIN HCl 1000 MG Oral Active Januvia 100 MG 1 tablet Orally Once a day Active Pravastatin Sodium 80 MG 1 tablet Orally Once a day 03/16/2025 Active Ferrous Gluconate 324 (38 Fe) MG 1 tablet Orally Once a day Active glipiZIDE ER 5 MG 1 tablet with food Orally Once a day Active [facility] Vitamin B-12 1000 MCG TAKE 1 TABLET BY MOUTH EVERY DAY Oral Active Amitriptyline HCl 10 MG 1 tablet at bedt angela Orally Once a day Active Biotin 5000 MCG 1 capsule Orally Onc e a day Active Omeprazole 20 MG 1 capsule 30 minutes before morning meal Orally Once a day Active B-12 1000 MCG as directed Orally [...] Problem Status W/U Status Risk Notes Problem 727170064 Anemia, unspecified type (D64.9) Active confirmed She [...] This is usually done by nephrology. Problem 674557564 Pure hypercholester olemia, unspecified (E78.00) Active confirmed I recommended that she maintain her weight at this level and have her lipids checked 2 or 3 times a year. Problem 07072236 Hypothyroidism , unspecified type (E03.9) Active confirmed She appears to be euthyroid and will continue on current medications. Problem 820621918 Type 2 diabetes mellitus without complication, unspecified whether snf insulin use (E11.9) Active confirmed She was continued on her usual diabetic regimen. Vital Signs Heart Rate 99 /min 03/16/2025 Temperature 97.2 degrees Fahrenheit 03/16/2025 Blood pressure diastolic 85 mm Hg 03/16/2025 Height 58.5 in 03/16/2025 Blood pressure systolic 149 mm Hg 03/16/2025 Weight 117 lbs 03/16/2025 BMI 24.03 kg/m2 03/16/2025 Encounters Encounter Location Date Provider Diagnosis Mirza Olsen III, MD [address] [place] [address] [address] [place], [place] [phone] 10/05/2024 Mirza Olsen Anemia, unspecified type D64.9 ; Type 2 diabetes mellitus without complication, unspecified whether snf insulin use E11.9 ; Hypothyroidism, unspecified type E03.9 and Pure hypercholesterolemia, unspecified E78.00 Mirza Olsen III, MD [address] [place] [address] [place] [address] 03/16/2025 Mirza Olsen Anemia, unspecified type D64.9 ; Type 2 diabetes mellitus without complication, unspecified whether terminal carman insulin use E11.9 ; Pure hypercholesterolemia, unspecified [...] 2 diabetes mellitus without complication, unspecified whether snf insulin use (ICD-10 - E11.9) Her diabetes has been stable and she is compliant with her medication. 03/16/2025 Anemia, unspecified type (ICD-10 - D64.9) [...] 2 diabetes mellitus without complication, unspecified whether snf insulin use (ICD-10 - E11.9) She was continued on her usual diabetic regimen. 10/05/2024 Hypothyroidism, unspecified type (ICD-10 - E03.9) She appears to be euthyroid and will continue on current medications. 03/16/2025 Pure hypercholesterolem ia, unspecified (ICD-10 - E78.00) I recommended that she maintain her weight at this level and have her lipids checked 2 or 3 times a year. 10/05/2024 Pure hypercholesterolem ia, unspecified (ICD-10 - E78.00) I recommended that she maintain her weight at this level and have her lipids checked 2 or 3 times a year. 03/16/2025 Hypothyroidism, unspecified type (ICD-10 - E03.9) She appears to be euthyroid and will continue on current medications. Plan Of Treatment Pending Test Test Name Order Date PROFILE, FASTING (COMPREHENSIVE METABOLI C) 03/16/2025 CBC w DIFF 03/16/2025 Ferritin 03/16/2025 Hemoglobin A1c 03/16/2025 Next Appt Details Provider Name:Mirza Olsen, 09/14/2025 02:30:00 PM, [address] [place] [address] [address], [place], [address], Insurance Providers Payer Name Payer Address Payer Phone Subscriber Number Group Number Insured Name Patient Relationship to Insured Coverage Start Date Coverage End Date [facility] [address] [place], [place] [id number] VICENTE PETERSON Self - patient is the insured MEDICARE NGS [address] [place] [address] [id number] VICENTE PETERSON Self - patient is the insured Medical (General) History Medical History History ICD Code Iron deficiency anemia Diabetes Osteoarthritis Degenerative disc disease cervical spine Hyperlipidemia Hypothyroid Fractured patella Osteoporosis Vitamin D deficiency Gout Lumbar spondylosis Hysterectomy 1986 Surgical History Surgery Date(Month/Year) Hysterectomy 1987 Repair fracture of patella 1995
[2025-07-27 17:33] LABS: Hematocrit 29.0 % (37.0-47.0); Hemoglobin 9.6 g/dl (12.0-16.0); Imm Gran Abs Auto 0.06 X10*3/uL (0.00-0.03); Imm Gran Pct Auto 0.5 % (0.0-0.4); Lymphocytes Absolute Auto 4.3 X10*3/uL (1.2-4.9); Mean Corpuscular HGB Conc 33.1 g/dl (31.0-35.0); Mean Corpuscular Hemoglobin 27.4 pg (27.0-33.0); Mean Corpuscular Volume 82.6 fL (80.0-98.0); NRBC Abs Auto 0.000 X10*3/uL (0.0-0.012); NRBC Pct Auto 0.0 /100WBC (0.0-0.2); Platelet Count 365 X10*3/uL (160-400); Red Blood Count 3.51 X10*6/uL (4.20-5.50); White Blood Count 13.0 X10*3/uL (4.8-10.8)
[2025-07-27 18:01] LABS: Alanine Aminotransferase 27 U/L (0-31); Albumin Level 4.3 g/dL (3.5-5.0); Alkaline Phosphatase 75 U/L (39-117); Aspartate Amino Transferase 26 U/L (5-31); Total Protein 7.3 g/dL (6.5-8.0)
[2025-07-27 18:04] LABS: Anion Gap 16 (12-20); Blood Urea Nitrogen 21 mg/dL (9-16); Calcium 9.2 mg/dL (8.4-10.2); Carbon Dioxide 19 mmol/L (22-29); Chloride 109 mmol/L (96-108); Estimated Glomerular Filt Rate 44; Iron 58 mcg/dL (30-160); Percent Iron Saturation 19 % (15-50); Potassium 4.7 mmol/L (3.3-5.1); Sodium 139 mmol/L (135-145); Total Iron Binding Capacity 313 mcg/dL (228-428); Unsaturated Iron Binding 255 ug/dL
[2025-07-27 18:18] LABS: Ferritin 14 ng/mL (10-250)
[2025-07-27 18:28] LABS: Folate 4.0 ng/mL (> or = 4.0); Vitamin B12 1222 pg/mL (200-900)
== END 2025-07-27 15:07 | disposition home or self-care (01) ==
LOC: HO.LAB 15:06
PROVIDERS: Absent Provider Internal Medicine; PCP Internal Medicine; Visit Provider Internal Medicine Hypertension Specialist
DX: N18.9 Chronic kidney disease, unspecified (principal); D64.9 Anemia, unspecified
CPT/HCPCS: 36415; 80048; 80076; 82607; 82728; 82746; 83540; 85025

== ENCOUNTER 2025-08-10 14:17 | Outpatient (AMB) | payer BC, SELFPAY ==
--- OUTSIDE RECORDS SUMMARY | 2024-05-18 09:00 | XMS_ITS ---
Author Organization Mirza Olsen III, MD Address [address] [place] [address] Care Team Providers Care Medical Lab Technologist Name Role Phone Seble MCLAIN, [facility] Primary Care Provider Mirza Russo Unavailable [phone] Allergies Allergen (clinical drug ingredient) Drug/Non Drug Allergy documented on EMR Reaction Allergy Type Onset Date Status metformin Metformin Unknown Drug Allergy Active lisinopril Lisinopril Unknown Drug Allergy Activ e ferrous sulfate Ferrous Sulfate Unknown Drug Allergy Active Results Component Value Reference Range Notes PROFILE, [...] Problem Status W/U Status Risk Notes Problem 430152935 Anemia, unspecified type (D64.9) Active confirmed She [...] This is usually done by nephrology. Problem 27556156 Hypothyroidism , unspecified type (E03.9) Active confirmed She appears to be euthyroid and will continue on current medications. Problem 726237908 Pure hypercholester olemia, unspecified (E78.00) Active confirmed I recommended that she maintain her weight at this level and have her lipids checked 2 or 3 times a year. Problem 871826841 Type 2 diabetes mellitus without complication, unspecified whether half-way insulin use (E11.9) Active confirmed She was continued on her usual diabetic regimen. Vital Signs Temperature 97.4 degrees Fahrenheit 05/18/20 24 Blood pressure systolic 134 mm Hg 05/18/20 24 Blood pressure diastolic 76 mm Hg 024 Heart Rate 95 /min 05/18/2024 Height 58.5 in 05/18/2024 Weight 119 lbs 05/18/2024 BMI 24.45 kg/m2 05/18/2024 Encounters Encounter Location Date Provider Diagnosis Mirza Olsen III, MD [address] [place] [address] [address] [place], [place]I [id number] 05/18/2024 Mirza Olsen Anemia, unspecified type D64.9 ; Hypothyroidism, unspecified type E03.9 ; Pure hypercholesterolemia, unspecified E78.00 and Type 2 diabetes mellitus without complication, unspecified whether document control 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 insulin use E11.9 Assessments Encounter Date Diagnosis [...] 2 diabetes mellitus without complication, unspecified whether document control associate insulin use (ICD-10 - E11.9) She will [...] Up: 2 Weeks, Reason: Telehealth Provider Name:Mirza Olsen, 09/14/2025 02:30:00 PM, [address] [place] [address], [address], [phone], Progress Notes * PETERSON, CASTROIDOB:1955 (69 yo F)Acc No.[id number]:05/18/2024 Progress Notes Patient: VICENTE CALL Provider: Tabby Olsen MD :1955 A ge:69 Y S ex:Female Date:05/18/2024 Address:[address] [place] [address] Pcp:Dari Pruett MD Subjective: * Chief Complaints: [...] N egative 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 She is for [...] 2 diabetes mellitus without complication, unspecified whether half-way insulin use - E11.9, She will continue [...] 2 diabetes mellitus without complication, unspecified whether half-way insulin use L AB: PROFILE, RANDOM (COMPREHENSIVE [...] 0 05/18/2024 Generated for Vaishnavi delaney/Valentin/Wilda on: 0 08/10/2025 04:51 PM EDT History and Physical Notes * HPI (History of Present Illness) Category Sub-Category Detail Notes COVID-19 Screening Questions Have you had any new onset fever, chills, cough, congestion, sore throat, shortness of breath, muscle aches?: No Have you been exposed to the virus withi n the last 10 days?: No Have you travelled internationally in [facility] last 10 days?: No Have you been [...]
--- OUTSIDE RECORDS SUMMARY | 2024-06-02 11:30 | XMS_ITS ---
Author Organization Mirza Olsen III, MD Address [address] [place] [address] Care Team Providers Care Sock Liner Name Role Phone Seble MCLAIN, [facility] Primary Care Provider Mirza Russo Unavailable [phone] Allergies Allergen (clinical drug ingredient) Drug/Non Drug Allergy documented on EMR Reaction Allergy Type Onset Date Status metformin Metformin Unknown Drug Allergy Active lisinopril Lisinopril Unknown Drug Allergy Activ e ferrous sulfate Ferrous Sulfate Unknown Drug Allergy Active Results Component Value Reference Range Notes CBC WITH AUTO DIFF Reviewed date:03/09/2025 09:34:40 AM Interpretation: Performing Lab: Notes/Report: Ferritin Reviewed date:03/09/2025 09:34:49 AM Interpretation: Performing Lab: Notes/Report: REASON FOR VISIT Iron deficiency anemia, Gastrointestinal blood loss Medications Medication SIG (Take, Route, Frequency, Duration) Notes Start Date End Date Status glipiZIDE ER 5 MG 1 tablet with food O rally Once a day Active [facility] Vitamin B-12 1000 MCG TAKE 1 TABLET BY MOUTH EVERY DAY Oral Active Ferrous Gluconate 324 (38 Fe) MG 1 tablet Orally Once a day Active Pravastatin Sodium 20 MG Oral Active Losartan Potassium-HCTZ 100-12.5 MG TAKE 1 TABLET BY MOUTH EVERY DAY Oral Active Januvia 100 MG 1 tablet Orally Once a day Active Biotin 5000 MCG 1 capsule Orally Onc e a day Active Omeprazole 20 MG 1 capsule 30 minutes before morning meal Orally Once a day Active metFORMIN HCl 1000 MG Oral Active Social History Tobacco Use: Social History Observation Description Date Details (start date - stop date) Never Smoker NA - NA Sex Assigned At : Social History Observation Description Sex Assigned At Female Tobacco Use/Smoking Question Answer Notes Patient is a nonsmoker Encounters Encounter Location Date Provider Diagnosis Mirza Olsen III, MD [address] [place] [address] [place] [address] 06/02/2024 Mirza Olsen Anemia, unspecified type D64.9 ; Hypothyroidism, unspecified type E03.9 ; Pure hypercholesterolemia, unspecified E78.00 and Type 2 diabetes mellitus without complication, unspecified whether detention insulin use E11.9 Assessments Encounter Date Diagnosis (ICD Code) Assessment Notes Treatment Notes Treatment Clinical Notes 06/02/2024 Anemia, unspecified type (ICD-10 - D64.9) The old records of the colonoscopy will be obtained. She will continue on ferrous gluconate.She likely has anemia of chronic disease combined with mild gastrointestinal blood loss. 06/02/2024 Hypothyroidism, unspecified type (ICD-10 - E03.9) She appears to be euthyroid and will continue on current medications. 06/02/2024 Pure hypercholesterolem ia, unspecified (ICD-10 - E78.00) I recommended that she maintain her weight at this level and have her lipids checked 2 or 3 times a year. 06/02/2024 Type 2 diabetes mellitus without complication, unspecified whether detention insulin use (ICD-10 - E11.9) She will continue on current medications at this time. Plan Of Treatment Medication Medication Name Sig Start Date Stop Date Notes glipiZIDE ER 5 MG 1 tablet with food O rally Once a day [facility] Vitamin B-12 1000 MCG TAKE 1 TABLET BY MOUTH EVERY DAY Oral Ferrous Gluconate 324 (38 Fe ) MG 1 tablet Orally Once a day Pravastatin Sodium 20 MG Oral Losartan Potassium-HCTZ 100-12.5 MG TAKE 1 TABLET BY MOUTH EVERY DAY Oral Januvia 100 MG 1 tablet Orally Once a day Biotin 5000 MCG 1 capsule Orally Once a day Omeprazole 20 MG 1 capsule 30 minutes before morning meal Orally Once a day metFORMIN HCl 1000 MG Oral Next Appt Details Follow Up: 4 Months, Reason: OV Provider Name:Mirza Olsen, 09/14/2025 02:30:00 PM, [address] [place] [address] DENIS GAUTAM, [place], [address], Progress Notes * SNOW PETERSON:1955 (69 yo F)Acc No.[id number]:06/02/2024 Patient: VICENTE CALL Provider: Tabby Olsen MD :1955 A ge:69 Y S ex:Female Date:06/02/2024 Address:[address] [place], [place] [id number] Pcp:Dari Pruett MD Subjective: * Chief Complaints: * I julio deficiency anemiaGastrointestinal blood loss * HPI: * : This telehealth visit took place over 15 minutes with the patient at home and me in my office. She gave consent for billing. This is a scheduled visit to review the laboratory evaluation she had of her anemia. She is currently taking ferrous gluconate. The vitamin B12 level and folic acid level and ferritin and reticulocyte Anna in the normal range. She has a mild anemia of chronic disease and of iron deficiency which is well compensated. She will be observed. She will continue on iron therapy. Telehealth L ocation of provider rendering services: { ...} [address] [place] [address] [place] [address] L ocation of patient: avel narvaez listed in demographics for today's visit P atient identification confirmed using: JENNY Dean ame T elehealth method: T elephone only. Patient not visible to care provider. C onsent: P atient verbally consented to treatment, Patient verbally consented to billing insurance company, Patient informed of any privacy concerns related to method of visit T otal time spent with patient (mins) 1 5 * ROS: G eneral/Constitutional: pain o nly normal aches and pains. C hills d enies.?Fatigue a dmits. F ever d enies. E NT: Decreased hearing d enies. R espiratory: Cough d enies. C ardiovascular: Chest pain with exertion d enies. D yspnea on exertion?denies. S hortness of breath d enies. G astrointestinal: Constipation o ccasional. D ecreased appetite d enies. D iarrhea d enies. H eartburn d enies. N ausea d enies. R ectal bleeding d enies. V omiting d enies. H ematology: bruising d enies. p etechiae d enies. S wollen glands n one have been noted. G enitourinary: Frequent urination a t night. M usculoskeletal: Muscle aches d enies. 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 * Medications: T akingmetFORMIN HCl 1000 MG Tablet Oral Losartan Potassium-HCTZ 100-12.5 MG Tablet TAKE 1 TABLET BY MOUTH EVERY DAY Oral Pravastatin Sodium 20 MG Tablet Oral [facility] Vitamin B-12 1000 MCG Tablet TAKE 1 TABLET BY MOUTH EVERY DAY Oral glipiZIDE ER 5 MG Tablet Extended Release 24 Hour 1 tablet with food Orally Once a dayFerrous Gluconate 324 (38 Fe) MG Tablet 1 tablet Orally Once a dayJanuvia 100 MG Tablet 1 tablet Orally Once a dayOmeprazole 20 MG Capsule Delayed Release 1 capsule 30 minutes before morning meal Orally Once a dayBiotin 5000 MCG Capsule 1 capsule Orally Once a dayMedication List reviewed and reconciled with the patientTaking metFORMIN HCl 1000 MG Tablet Oral Taking Losartan Potassium-HCTZ 100-12.5 MG Tablet TAKE 1 TABLET BY MOUTH EVERY DAY Oral Taking Pravastatin Sodium 20 MG Tablet Oral Taking [facility] Vitamin B-12 1000 MCG Tablet TAKE 1 TABLET BY MOUTH EVERY DAY Oral Taking glipiZIDE ER 5 MG Tablet Extended Release 24 Hour 1 tablet with food Orally Once a dayTaking Ferrous Gluconate 324 (38 Fe) MG Tablet 1 tablet Orally Once a dayTaking Januvia 100 MG Tablet 1 tablet Orally Once a dayTaking Omeprazole 20 MG Capsule Delayed Release 1 capsule 30 minutes before morning meal Orally Once a dayTaking Biotin 5000 MCG Capsule 1 capsule Orally Once a dayMedication List reviewed and reconciled with the patient * Allergies: M etformin: Side EffectsLisinopril: Side EffectsFerrous Sulfate: Side Effectsno[Allergies Verified] Objective: Assessment: * Assessment: 1. A nemia, unspecified type - D64.9 (Primary), The old records of the colonoscopy will be obtained. She will continue on ferrous gluconate.She likely has anemia of chronic disease combined with mild gastrointestinal blood loss. 2 . H ypothyroidism, unspecified type - E03.9, She appears to be euthyroid and will continue on current medications. 3 . P ure hypercholesterolemia, unspecified - E78.00, I recommended that she maintain her weight at this level and have her lipids checked 2 or 3 times a year. 4 . T ype 2 diabetes mellitus without complication, unspecified whether buttermaker continuous churn insulin use - E11.9, She will continue on current medications at this time. Plan: * Treatment: 2. O thers Continue metFORMIN HCl Tablet, 1000 [...] Orally, Once a day. * Procedure Codes: 9 9442 PHONE E/M BY PHYS 11-20 MIN * Preventive Medicine: DM Care Plan: P atient Lifestyle Goals P atient wants to be able to manage diabetes without too much effort. T reatment Goals H bA1C < 7.0, Blood Sugars less than < 115. B arriers n o barriers. S elf-Managment Goals I ncrease exercise to 3 times a week for 30 mins, Stop drinking juice and/or soda, replace with more water, Take blood sugars twice daily and keep a log. Bring log in to next appointment. * Follow Up: 4 Months (Reason: OV) * Images: * Sign off status: Completed true * Provider: Tabby Olsen MD Date: 06/02/2024 Generated for Vaishnavi delaney/Valentin/Wilda on: 08/10/2025 04:51 PM EDT History and Physical Notes * HPI (History of Present Illness) Category Sub-Category Detail Notes [facility] {...} [address] [facility] [address] [place] [address] Location of patient:: address listed in demographics for today's visit Patient identification confirmed using:: Name, Telehealth method:: Telephone only. Krystyna ent not visible to care provider. Consent:: Patient verbally c onsented to treatment, Patient verbally consented to billing insurance company, Patient informed of any privacy concerns related to method of visit Total time spent with patient (mins): 15
--- OUTSIDE RECORDS SUMMARY | 2024-10-05 10:30 | XMS_ITS ---
Author Organization Mirza Olsen III, MD Address [address] [place] [address] Care Team Providers Care Senior Sales Consultant Name Role Phone Seble MCLAIN, [facility] Primary Care Provider Mirza Russo Unavailable [phone] Allergies Allergen (clinical drug ingredient) Drug/Non Drug [...] Date Provider Diagnosis Mirza Olsen III, MD [address] [place] [address] [place] [address] 10/05/2024 Mirza Olsen Anemia, unspecified type D64.9 ; Type 2 diabetes mellitus without complication, unspecified whether retirement insulin use E11.9 ; Hypothyroidism, unspecified type [...] 2 diabetes mellitus without complication, unspecified whether retirement insulin use (ICD-10 - E11.9) Her diabetes [...] OV Provider Name:Mirza Olsen, 09/14/2025 02:30:00 PM, [address] [place] [address], [address], [address], Progress Notes * CASTRO PETERSONIDOB:1955 (69 yo F)Acc No.[id number]:10/05/2024 Progress Notes Patient: VICENTE CALL Provider: Tabby Olsen MD :1955 A ge:69 Y S ex:Female Date:10/05/2024 Address:[address] [place] [address] Pcp:Dari Pruett MD Subjective: * Chief Complaints: [...] n onsmoker 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 She is for [...] 2 diabetes mellitus without complication, unspecified whether retirement insulin use - E11.9 N otes :Her [...] 2 diabetes mellitus without complication, unspecified whether retirement insulin use L AB: PROFILE, RANDOM (COMPREHENSIVE [...] 12/05/2023 Generated for Printi ng/Giovanag/eTransmitting on: 0 08/10/2025 04:52 PM EDT History and Physical Notes * [...]
--- OUTSIDE RECORDS SUMMARY | 2025-03-16 10:00 | XMS_ITS ---
Author Organization Mirza Olsen III, MD Address [address] [place] [address] Care Team Providers Care Communication Manager Name Role Phone Seble MCLAIN, [facility] Primary Care Provider Mirza Russo Unavailable [phone] Allergies Allergen (clinical drug ingredient) Drug/Non Drug Allergy documented on EMR Reaction Allergy Type Onset Date Status metformin Metformin Unknown Drug Allergy Active lisinopril Lisinopril Unknown Drug Allergy Activ e ferrous sulfate Ferrous Sulfate Unknown Drug Allergy Active REASON FOR VISIT Hypothyroid, Anemia, Diabetes, Hyperlipidemia, [...] Date Provider Diagnosis Mirza Olsen III, MD [address] [place] [address] [place] [address] 03/16/2025 Mirza Olsen Anemia, unspecified type D64.9 ; Type 2 diabetes mellitus without complication, unspecified whether half-way insulin use E11.9 ; Pure hypercholesterolemia, unspecified [...] without complication, unspecified whether half-way insulin use (ICD-10 - E11.9) She was [...] Months, Reason: ov review labs Provider Name:Mirza Olsen, 09/14/2025 02:30:00 PM, [address] [place] [address], [address], Progress Notes * NICHOLAS CASTROIDOB:1955 (69 yo F)Acc No.[id number]:03/16/2025 Progress Notes Patient: VICENTE CALL Provider: Tabby Olsen MD :1955 A ge:69 Y S ex:Female Date:03/16/2025 Address:[address] [place] [address] Pcp:Dari Pruett MD Subjective: * Chief Complaints: [...] n onsmoker 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 She is for [...] complication, unspecified whether half-way insulin use - E11.9 N otes :She [...] whether half-way insulin use L AB: PROFILE, FASTING (COMPREHENSIVE [...] MD Date: 0 03/16/2025 Generated for Vaishnavi delaney/Valentin/Annemarieitting on: 0 08/10/2025 04:52 PM EDT History [...]
--- OUTSIDE RECORDS SUMMARY | 2025-07-27 10:00 | XMS_ITS ---
Author Organization [facility] Address [address] [place] [id number] Care Team Providers Care Medical Researcher Name Role Phone Dari Pruett Primary Care Provider Mirza Nelson Unavailable [phone] Allergies Allergen (clinical drug ingredient) Drug/Non Drug Allergy documented on EMR Reaction Allergy Type Onset Date Status metformin Metformin HCl DIARRHEA Drug Allergy Act chico lisinopril Lisinopril COUGH Drug Allergy Activ e REASON FOR VISIT Patient presents today for acid reflux Medications Medication SIG (Take, Route, Frequency, Duration) Notes Start Date End Date Status Triamcinolone Acetonide 0.5 % APPLY TOPICALLY TWICE DAILY External for 30 Active Levothyroxine Sodium 25 MCG 1 tablet on an empty stomach in the morning Orally Once a day Active Vitamin B-12 1000 MCG TAKE 1 TABLET BY M OUTH EVERY DAY Oral for 90 Active Ferrous Sulfate 324 (65 Fe) MG TAKE 1 TABLET BY MOUTH EVERY DAY Oral for 90 Active Aspirin 81 81 MG 1 tablet Orally Once a day Active Famotidine 40 MG 1 tablet Orally Twic e a day--every morning and every late afternoon/early evening for 30 days 07/27/2025 Active Losartan Potassium 25 MG 1 tablet Orally Once a day Active metFORMIN HCl ER (MOD) 1000 MG 1 tablet with evening meal Orally Once a day Active Vitamin D-3 25 MCG (1000 UT) 1 capsule O rally Once a day Active glipiZIDE ER 5 MG 1 tablet with food Orally Once a day Active Omeprazole 20 MG TAKE ONE CAPSULE BY MOUTH EVERY DAY Oral Active Januvia 100 MG 1 tablet Orally Once a day NEEDED Active Social History Tobacco Use: Social History Observation Description Date Details (start date - stop date) Never Smoker NA - NA Tobacco Use/Smoking Question Answer Notes Patient is a nonsmoker Alcohol Screen Question Answer Notes Did you have a drink containing alcohol in the p ast year? No Points 0 Interpretation Negative Section Notes: Vegetarian/no eggs, nonsmoke r, no alcohol Problems Problem Type SNOMED Code ICD Code Onset Dates Problem Status W/U Status Risk Notes Problem Anemia (890583258) Anemia (D64.9) Active confir med Problem Gastroesophageal reflux disease (650347333) GERD (gastroesophag eal reflux disease) (K21.9) Active confirmed Problem Epigastric pain (49094018) Epigastric burning sensation (R10.13) Active confirmed Vital Signs Temperature 97.7 degrees Fahrenheit 07/27/20 25 Blood pressure systolic 001 mm Hg 07/27/20 25 Blood pressure diastolic 01 mm Hg 025 Height 59 in 07/27/2025 Weight 117.6 lbs 07/27/2025 BMI 23.75 kg/m2 07/27/2025 Encounters Encounter Location Date Provider Diagnosis [facility] [address] [facility] [address] [place] [id number] 07/27/2025 Mirza Palencia Anemia D64.9 ; GERD (gastroesophageal reflux disease) K21.9 and Epigastric burning sensation R10.13 Assessments Encounter Date Diagnosis (ICD Code) Assessment Notes Treatment Notes Treatment Clinical Notes Section Notes 07/27/2025 Anemia (ICD-10 - D64.9) Overall, Ana appears well. She is not having any particularly worrisome symptoms such as dysphagia, anorexia, or weight loss. However, she is having increasing symptoms of abdominal pain and reflux despite being on a daily dose of omeprazole and not having any real lifestyle factors that would account for reflux. We did review that at some point she might need a follow-up upper endoscopy to reassess things such as the hiatal hernia and to rule out any significant esophagitis. However, since she is not having any worrisome symptoms and the previous endoscopy was not revealing, I do not think we need to diego into that and we can try to see if we can improve her symptoms. I have recommended switching her to famotidine 40 mg twice daily and having her stop omeprazole. She describes that when her gyroscopic engineering technician had told her to stop the famotidine she had also been on omeprazole at that time and he had advised her that she did not need both medications at that time. I advised her that I think that was a quite reasonable recommendation. Prior to increasing the dose of omeprazole to 40 mg daily, which the gyroscopic engineering technician may not want given her renal insufficiency, I am going to switch her back to a trial of omeprazole 40 mg twice daily and have her stop the 20 mg omeprazole. I have also advised her to be sure not to eat for several hours before bedtime and to take some Tums right at bedtime. I have given her an appointment to see me again in several months at which time he we can review things. If things have improved then we can simply continue that line of treatment. On the other hand, if the symptoms remain problematic I advised her that I would then be inclined to most likely switch her from famotidine back to omeprazole but at 40 mg daily. At that point we might want to have her undergo an upper endoscopy as well. In the meantime, I shall repeat an abdominal ultrasound to be sure we are not dealing with any component of symptomatic gallstones given that her last ultrasound was about 7 years ago. In regard to her anemia I shall check some labs including iron studies, B12 level and folate level. If indeed it appears that she is iron deficient then we might need to consider repeating her colonoscopy this year, as well as a repeat upper endoscopy. If things are otherwise stable I will plan to see her again in several months, but I did advise her and her to contact me prior to that if she is having any problems or questions I can be of assistance with. Thank you again for allowing me to participate in Ana's care. I shall continue to keep you advised of her progress. 07/27/2025 GERD (gastroesophag eal reflux disease) (ICD-10 - K21.9) I want you to stop the 20mg Omeprazole and start using the 40 mg Famotidine twice a day in the morning and early evening. Do not eat for 3 to 4 hours before bedtime. Take 3 over the counter TUMS antacids right before bedtime. If this doesn't help then I will want to try the 40mg omeprazole but you would need to check with your kidney specialist first. We may need to repeat the upper endoscopy at some poin t as well. Overall, Ana appears well. She is not having any particularly worrisome symptoms such as dysphagia, anorexia, or weight loss. However, she is having increasing symptoms of abdominal pain and reflux despite being on a daily dose of omeprazole and not having any real lifestyle factors that would account for reflux. We did review that at some point she might need a follow-up upper endoscopy to reassess things such as the hiatal hernia and to rule out any significant esophagitis. However, since she is not having any worrisome symptoms and the previous endoscopy was not revealing, I do not think we need to diego into that and we can try to see if we can improve her symptoms. I have recommended switching her to famotidine 40 mg twice daily and having her stop omeprazole. She describes that when her gyroscopic engineering technician had told her to stop the famotidine she had also been on omeprazole at that time and he had advised her that she did not need both medications at that time. I advised her that I think that was a quite reasonable recommendation. Prior to increasing the dose of omeprazole to 40 mg daily, which the gyroscopic engineering technician may not want given her renal insufficiency, I am going to switch her back to a trial of omeprazole 40 mg twice daily and have her stop the 20 mg omeprazole. I have also advised her to be sure not to eat for several hours before bedtime and to take some Tums right at bedtime. I have given her an appointment to see me again in several months at which time he we can review things. If things have improved then we can simply continue that line of treatment. On the other hand, if the symptoms remain problematic I advised her that I would then be inclined to most likely switch her from famotidine back to omeprazole but at 40 mg daily. At that point we might want to have her undergo an upper endoscopy as well. In the meantime, I shall repeat an abdominal ultrasound to be sure we are not dealing with any component of symptomatic gallstones given that her last ultrasound was about 7 years ago. In regard to her anemia I shall check some labs including iron studies, B12 level and folate level. If indeed it appears that she is iron deficient then we might need to consider repeating her colonoscopy this year, as well as a repeat upper endoscopy. If things are otherwise stable I will plan to see her again in several months, but I did advise her and her to contact me prior to that if she is having any problems or questions I can be of assistance with. Thank you again for allowing me to participate in Ana's care. I shall continue to keep you advised of her progress. 07/27/2025 Epigastric burning sensation (ICD-10 - R10.13) Overall, Ana appears well. She is not having any particularly worrisome symptoms such as dysphagia, anorexia, or weight loss. However, she is having increasing symptoms of abdominal pain and reflux despite being on a daily dose of omeprazole and not having any real lifestyle factors that would account for reflux. We did review that at some point she might need a follow-up upper endoscopy to reassess things such as the hiatal hernia and to rule out any significant esophagitis. However, since she is not having any worrisome symptoms and the previous endoscopy was not revealing, I do not think we need to diego into that and we can try to see if we can improve her symptoms. I have recommended switching her to famotidine 40 mg twice daily and having her stop omeprazole. She describes that when her gyroscopic engineering technician had told her to stop the famotidine she had also been on omeprazole at that time and he had advised her that she did not need both medications at that time. I advised her that I think that was a quite reasonable recommendation. Prior to increasing the dose of omeprazole to 40 mg daily, which the gyroscopic engineering technician may not want given her renal insufficiency, I am going to switch her back to a trial of omeprazole 40 mg twice daily and have her stop the 20 mg omeprazole. I have also advised her to be sure not to eat for several hours before bedtime and to take some Tums right at bedtime. I have given her an appointment to see me again in several months at which time he we can review things. If things have improved then we can simply continue that line of treatment. On the other hand, if the symptoms remain problematic I advised her that I would then be inclined to most likely switch her from famotidine back to omeprazole but at 40 mg daily. At that point we might want to have her undergo an upper endoscopy as well. In the meantime, I shall repeat an abdominal ultrasound to be sure we are not dealing with any component of symptomatic gallstones given that her last ultrasound was about 7 years ago. In regard to her anemia I shall check some labs including iron studies, B12 level and folate level. If indeed it appears that she is iron deficient then we might need to consider repeating her colonoscopy this year, as well as a repeat upper endoscopy. If things are otherwise stable I will plan to see her again in several months, but I did advise her and her to contact me prior to that if she is having any problems or questions I can be of assistance with. Thank you again for allowing me to participate in Ana's care. I shall continue to keep you advised of her progress. Plan Of Treatment Medication Medication Name Sig Start Date Stop Date Notes Famotidine 40 MG 1 tablet Orally Twic e a day--every morning and every late afternoon/early evening for 30 days 07/27/2025 Treatment Notes Assessment Notes GERD (gastroesophageal reflux disease) I want you to stop the 20mg Omeprazole and start using the 40 mg Famotidine twice a day in the morning and early evening. Do not eat for 3 to 4 hours before bedtime. Take 3 over the counter TUMS antacids right before bedtime. If this doesn't help then I will want to try the 40mg omeprazole but you would need to check with your kidney specialist first. We may need to repeat the upper endoscopy at some poin t as well. Pending Test Test Name Order Date LIVER PROFILE 07/27/2025 IRON + IBC (FE) 07/27/2025 CBC w DIFF 07/27/2025 Ferritin 07/27/2025 Vitamin B12 and Folate 07/27/2025 US abdomen complete 07/27/2025 Next Appt Details Follow Up: 3 Months, Reason: Provider Name:Mirza Palencia , 11/09/2025 11:10:00 AM, [address] [place] [address], [address], [place], [id number], Progress Notes * CASTRO PETERSONIDOB:1955 (70 yo F)Acc No.[id number]:07/27/2025 Progress Notes Patient: ANA CALL Provider: Tabby Palencia MD :1955 A ge:70 Y S ex:Female Date:07/27/2025 Address:[address] [place], [place] [id number] Pcp:Dari S Adlakha Subjective: * Chief Complaints: * 1 . Patient presents today for acid reflux. * HPI: i ncontinence: I saw Ana in consultation today for evaluation of some increasing episodes of upper abdominal pain and heartburn. She was accompanied by her . I last saw Ana in 2018, at which time we had reviewed her previous upper endoscopy and colonoscopy. Her limited colonoscopy was negative but I was unable to complete the exam due to probable intra-abdominal adhesions. She subsequently underwent a CT-colonography study which was negative for any obvious polyps or other lesions. Her upper endoscopy had revealed a small hiatal hernia but no significant changes of reflux such as Mccarthy's esophagus or esophagitis. She did have a previous abdominal ultrasound that was negative for gallstones. She has been on omeprazole 20 mg daily but has been experiencing increasing symptoms of belching, some regurgitation, and heartburn, both at night that would awaken her as well as occasionally during the day. In the past she had been on famotidine 40 mg twice a day which she thinks possibly worked better than omeprazole, but she had been advised to stop that by her renal specialist. She also describes symptoms of upper abdominal pain that seem to awaken her and then followed by her heartburn. She denies any signs of jaundice, vomiting, dysphagia, nausea, anorexia, early satiety, or weight loss. She reports that her bowel movements have remained regular and without any signs of bleeding. Her laboratories in June revealed a hemoglobin of 10.0 with a normal MCV. Her BUN was 22 with a creatinine of 1.4, and her LFTs were normal. In March her hemoglobin was 10.7 with a normal MCV. Her ferritin level was 16 at that time. * Medical History: N IDDM, Hypertension, Denies RI,CVA,Lung disease,renal disease, GERD- EGD in August of 2018 revealed only a small hiatal hernia, benign proximal gastric polyps, and mild gastritis- there was no evidence of H. pylori, significant esophagitis, nor Mccarthy's esophagus, Negative screening colonoscopy in 2005- diverticulosis and internal hemorrhoids; negative limited colonoscopy in August of 2018 to only the sigmoid colon due to inability to advance the scope beyond this- a followup CT colonography on the same day was unremarkable, Hyperlipidemia, Neg. abdominal ultrasound in 2018. * Surgical History: L eft patella knee surgery 1996, [facility] , Cataracts . * Family History: F ather: , stroke/body paralyzation. M other: , diagnosed with HTN (hypertension). No known hx of colon cancer. No family history of liver cancer. * Social History: T obacco Use: T obacco Use/Smoking P atient is a n onsmoker. D rugs/Alcohol: A lcohol Screen D id you have a drink containing alcohol in the past year? N o, P oints 0 , I nterpretation N egative. M iscellaneous: M arital status: . Occupation: N/A. V egetarian/no eggs, nonsmoker, no alcohol. * Medications: T aking metFORMIN HCl ER (MOD) 1000 MG Tablet Extended Release 24 Hour 1 tablet with evening meal Orally Once a day , Taking Losartan Potassium 25 MG Tablet 1 tablet Orally Once a day , Taking glipiZIDE ER 5 MG Tablet Extended Release 24 Hour 1 tablet with food Orally Once a day , Taking Vitamin D-3 25 MCG (1000 UT) Capsule 1 capsule Orally Once a day , Taking Aspirin 81 81 MG Tablet Delayed Release 1 tablet Orally Once a day , Taking Ferrous Sulfate 324 (65 Fe) MG Tablet Delayed Release TAKE 1 TABLET BY MOUTH EVERY DAY Oral , Taking Triamcinolone Acetonide 0.5 % Cream APPLY TOPICALLY TWICE DAILY External , Taking Vitamin B-12 1000 MCG Tablet TAKE 1 TABLET BY MOUTH EVERY DAY Oral , Taking Levothyroxine Sodium 25 MCG Tablet 1 tablet on an empty stomach in the morning Orally Once a day , Taking Januvia 100 MG Tablet 1 tablet Orally Once a day NEEDED , Taking Omeprazole 20 MG Capsule Delayed Release TAKE ONE CAPSULE BY MOUTH EVERY DAY Oral , Discontinued Losartan Potassium 50 MG Tablet TAKE 1 TABLET BY MOUTH EVERY DAY Oral , Discontinued Pravastatin Sodium 80 MG Tablet 1 tablet Orally Once a day , Discontinued metFORMIN HCl ER 750 MG Tablet Extended Release 24 Hour 1 tablet with evening meal Orally BID , Medication List reviewed and reconciled with the patient * Allergies: L isinopril: COUGH, Metformin HCl: DIARRHEA. Objective: * Vitals: W t:117.6lbs, Ht: 59 in, BMI: 23.75 Index, BP:001/01mm Hg, Temp:97.7, Wt-k.34. Assessment: * Assessment: 1. G ERD (gastroesophageal reflux disease) - K21.9 (Primary) 2 . A nemia - D64.9 3 . E pigastric burning sensation - R10.13 O Ana paris appears well. She is not having any particularly worrisome symptoms such as dysphagia, anorexia, or weight loss. However, she is having increasing symptoms of abdominal pain and reflux despite being on a daily dose of omeprazole and not having any real lifestyle factors that would account for reflux. We did review that at some point she might need a follow-up upper endoscopy to reassess things such as the hiatal hernia and to rule out any significant esophagitis. However, since she is not having any worrisome symptoms and the previous endoscopy was not revealing, I do not think we need to diego into that and we can try to see if we can improve her symptoms. I have recommended switching her to famotidine 40 mg twice daily and having her stop omeprazole. She describes that when her gyroscopic engineering technician had told her to stop the famotidine she had also been on omeprazole at that time and he had advised her that she did not need both medications at that time. I advised her that I think that was a quite reasonable recommendation. Prior to increasing the dose of omeprazole to 40 mg daily, which the gyroscopic engineering technician may not want given her renal insufficiency, I am going to switch her back to a trial of omeprazole 40 mg twice daily and have her stop the 20 mg omeprazole. I have also advised her to be sure not to eat for several hours before bedtime and to take some Tums right at bedtime. I have given her an appointment to see me again in several months at which time he we can review things. If things have improved then we can simply continue that line of treatment. On the other hand, if the symptoms remain problematic I advised her that I would then be inclined to most likely switch her from famotidine back to omeprazole but at 40 mg daily. At that point we might want to have her undergo an upper endoscopy as well. In the meantime, I shall repeat an abdominal ultrasound to be sure we are not dealing with any component of symptomatic gallstones given that her last ultrasound was about 7 years ago. In regard to her anemia I shall check some labs including iron studies, B12 level and folate level. If indeed it appears that she is iron deficient then we might need to consider repeating her colonoscopy this year, as well as a repeat upper endoscopy. If things are otherwise stable I will plan to see her again in several months, but I did advise her and her to contact me prior to that if she is having any problems or questions I can be of assistance with. Thank you again for allowing me to participate in Ana's care. I shall continue to keep you advised of her progress. Plan: * Treatment: 2. A nemia L AB: LIVER PROFILE L AB: IRON + IBC (FE) L AB: CBC w DIFF L AB: Ferritin L AB: Vitamin B12 and Folate 3. E pigastric burning sensation I maging: US abdomen complete * * Preventive Medicine: Urinary Incontinence: U rinary Incontinence A ssessment: A bsent, P madhu of care documented: N o, reason not specified. Screenings: F all Risk Screening F all Risk Assessment: N o falls in the past year, S creening: N o falls in the past year, A ssessment: N ot performed, no reason specified, P madhu of Care: N ot documented, no reason specified. * Follow Up: 3 Months * * The named appointment provid er may or may not be the originator of this progress note, and it is not deemed complete until electronically signed by the appointment provider. Sign off status: Pending * Provider: Tabby Palencia MD Date: 0 07/27/2025 Generated for Vaishnavi delaney/Valentin/Wilda on: 0 08/10/2025 04:51 PM EDT History and Physical Notes * HPI (History of Present Illness) Category Sub-Category Detail Notes Category Not es incontinence I saw Ana in consultation today for evaluation of some increasing episodes of upper abdominal pain and heartburn. She was accompanied by her . I last saw Ana in 2018, at which time we had reviewed her previous upper endoscopy and colonoscopy. Her limited colonoscopy was negative but I was unable to complete the exam due to probable intra-abdominal adhesions. She subsequently underwent a CT-colonography study which was negative for any obvious polyps or other lesions. Her upper endoscopy had revealed a small hiatal hernia but no significant changes of reflux such as Mccarthy's esophagus or esophagitis. She did have a previous abdominal ultrasound that was negative for gallstones. She has been on omeprazole 20 mg daily but has been experiencing increasing symptoms of belching, some regurgitation, and heartburn, both at night that would awaken her as well as occasionally during the day. In the past she had been on famotidine 40 mg twice a day which she thinks possibly worked better than omeprazole, but she had been advised to stop that by her renal specialist. She also describes symptoms of upper abdominal pain that seem to awaken her and then followed by her heartburn. She denies any signs of jaundice, vomiting, dysphagia, nausea, anorexia, early satiety, or weight loss. She reports that her bowel movements have remained regular and without any signs of bleeding. Her laboratories in June revealed a hemoglobin of 10.0 with a normal MCV. Her BUN was 22 with a creatinine of 1.4, and her LFTs were normal. In March her hemoglobin was 10.7 with a normal MCV. Her ferritin level was 16 at that time.
--- NOTE | 2025-08-10 14:19 | HO.NEPHOV_ITS ---
Vital Signs 08/10/25 14:20 Height 5 ft Weight 117 lb BMI 22.8 BP 118/58 L Blood Pressure Location Lt brachial Position Sitting Pulse 107 H Pulse Source Pulse Oximeter Pulse Oximetry (%) 98 Oxygen Delivery Method Room Air Intake Visit Reasons: 1 MO FU-Conf Warning Coordination Meteorologist Required: No Accompanied by: Spouse Allergies No Known Allergies (No Known Allergies*) Allergy (Verified 08/10/25 14:22) Medication List - Last Reconciled 08/10/25 by Stefan Vu MD aspirin 81 mg PO DAILY cholecalciferol (vitamin D3) 25 mcg PO DAILY cyanocobalamin (vitamin B-12) ER 1,000 mcg PO DAILY famotidine 40 mg PO DAILY ferrous gluconate 324 mg PO DAILY glipizide ER 5 mg PO DAILY losartan 25 mg PO DAILY metformin 1,000 mg PO BID omeprazole 20 mg PO DAILY pravastatin 40 mg PO DAILY HPI Comments Details: The patient is a 70-year-old female presenting with chronic kidney disease. She has a long-standing history of diabetes mellitus since 1996, which has been managed with dietary changes and medications. Her kidney function has deteriorated from 56% in September last year to 42% in June this year, The patient also has hypertension, treated with losartan and hydrochlorothiazide. Her blood pressure was recently recorded at 88/52 mmHg, She used to be on losartan 25 mg which was recently increased to 100 mg along with HCTZ 12.5 mg. She complains of fatigue and low energy levels, attributing these symptoms to dietary restrictions and low blood pressure. She also experiences back pain, managed with Tylenol as needed. 08/10/25 The patient is a 70-year-old female presenting for follow-up of chronic kidney disease. Losartan hydrochlorothiazide was discontinued, and she was restarted on 10 mg of an unspecified medication. Blood pressure and kidney function have improved, with creatinine decreasing from 1.4 to 1.2. The patient reports anemia and plans to see Dr. Huerta for management. Medications: - Losartan hydrochlorothiazide 100/12.5 mg: Discontinued - Unspecified medication 10 mg: Current Diagnostic Results: - Labs: Creatinine decreased from 1.4 to 1.2 PFSH Medical History Diabetes Social History Patient Tobacco Use Status: Never used Tobacco Current occupational status: retired Current occupation: right hand dominant Physical Exam Vital Signs: Last Vital Signs Pulse 107 H 08/10/25 14:20 BP 118/58 L 08/10/25 14:20 Pulse Ox 98 08/10/25 14:20 Oxygen Delivery Method Room Air 08/10/25 14:20 BMI result Body Mass Index 22.8 Const General: comfortable Nutritional Appearance: well nourished Orientation/consciousness: patient oriented x3 HEENT Head: No normal to inspection Mouth: moist mucous membranes Neck Neck: Yes supple and Yes no JVD Resp Auscultation: clear to auscultation bilaterally and no rales Cardio Jugular venous distension: no JVD Palpation: no palpable S3 and no palpable S4 Heart sounds: no rubs GI Palpation (GI): Soft to palpation and nontender Percussion: No Fluid wave present General: Yes no CVA tenderness Back/Spine/Pelvis Back: no CVA tenderness Skin General skin exam: no rashes or lesions noted Neuro General: patient oriented x3 Extrem General: Yes no pedal edema and No clubbing Results Reviewed Nephrology Results: Hgb, (12.0-16.0) 9.6 g/dl L 07/27/25 WBC, (4.8-10.8) 13.0 X10*3/uL H 07/27/25 Plt Count, (160-400) 365 X10*3/uL 07/27/25 Sodium, (135-145) 139 mmol/L 07/27/25 Potassium, (3.3-5.1) 4.7 mmol/L 07/27/25 Chloride, (96-108) 109 mmol/L H 07/27/25 Carbon Dioxide, (22-29) 19 mmol/L L 07/27/25 BUN, (9-16) 21 mg/dL H 07/27/25 Creatinine, (0.5-1.4) 1.20 mg/dL 07/27/25 Calcium, (8.4-10.2) 9.2 mg/dL 07/27/25 Assessment & Plan Assessment & Plan (1) CKD (chronic kidney disease): Code(s): N18.9 - Chronic kidney disease, unspecified Category: Medical Plan: CKD 3 most likely due to underlying diabetic kidney disease. She probably has a component of acute kidney injury most likely due to hypoperfusion. No reason to believe that she has any active glomerular nephritis or interstitial disease at this time. Obstructive uropathy seems unlikely. Hypoperfusion most likely due to relatively low blood pressure as well as the use of ARB with HCTZ. (2) Anemia: Comment: Multifactorial. Rule out iron deficiency / rule out erythropoietin deficiency Code(s): D64.9 - Anemia, unspecified Category: Medical Plan renal fx increased after lowering ARB BP is well controlled Keep losartan 25 mg and monitor blood pressure. Continue to avoid nephrotoxic agents including NSAIDs. Increase p.o. fluid intake. She has anemia. F/u with Orders: Orders Complete Blood Count no Diff 3 Months N18.9 - Chronic kidney disease, unspecified Basic Metabolic Panel 3 Months N18.9 - Chronic kidney disease, unspecified Coding Level of Care Code Est Pt Level 4 (09205) Diagnoses CKD (chronic kidney disease) N18.9 Anemia D64.9
[2025-08-10 14:20] VITALS: BP 118/58; PULSE 107; O2SAT 98; BMI 22.8
--- OUTSIDE RECORDS SUMMARY | 2025-08-10 16:51 | XMS_ITS | Patient Health Record ---
Author Organization [facility] Address [address] [place] [address] Care Team Providers Care Sales And Service Technician Name Role Phone Dari Pruett Primary Care Provider UnavailMirza Mae Unavailable [phone] Allergies Allergen (clinical drug ingredient) Drug/Non Drug Allergy documented on EMR Reaction Allergy Type Onset Date Status metformin Metformin HCl DIARRHEA Drug Allergy Act chico lisinopril Lisinopril COUGH Drug Allergy Activ e Results Component Value Reference Range Notes Liver Panel (Not yet reviewe d by provider) Interpretation: Performing Lab:[facility], [address] [place] [id number] Notes/Report: Bilirubin Total 0.2 0.0-1.0 mg/dL Bilirubin Direct < 0.2 0.0-0.5 mg/dL Aspartate Amino Transferase 26 5-31 U/L Alanine Aminotransferase 27 0-31 U/L Total Protein 7.3 6.5-8.0 g/dL Albumin Level 4.3 3.5-5.0 g/dL Alkaline Phosphatase 75 39-117 U/L Reason For Referral No Information Medications Medication [...] Problem Status W/U Status Risk Notes Problem 964260896 Encounter for screening for malignant neoplasm of colon (Z12.11) Active confirmed Problem 49369402 Abdominal pain, epigastric (R10.13) Active confirmed Problem 014137890 Gastroesophageal reflux disease without esophagitis (K21.9) Active confirmed Problem 995301608 Gastroesophageal reflux disease, esophagitis presence not specified (K21.9) Active confirmed Problem Anemia (597979640) Anemia (D64.9) Active confir med Problem Gastroesophageal reflux disease (533703047) GERD (gastroesophageal reflux disease) (K21.9) Active confirmed Problem Epigastric pain (65219110) Epigastric burning sensation (R10.13) Active confirmed Vital Signs Temperature 97.7 degrees Fahrenheit 07/27/2025 Blood pressure diastolic 01 mm Hg 07/27/2025 Height 59 in 07/27/2025 Blood pressure systolic 001 mm Hg 07/27/2025 Weight 117.6 lbs 07/27/2025 BMI 23.75 kg/m2 07/27/2025 Encounters Encounter Location Date Provider Diagnosis [facility] [address] [facility] [address] [place] [phone] 07/27/2025 Mirza Palencia Anemia D64.9 ; GERD [...] stop omeprazole. She describes that when her quality process engineer had told her to stop the famotidine she had also been on omeprazole at that time and he had advised her that she did not need both medications at that time. I advised her that I think that was a quite reasonable recommendation. Prior to increasing the dose of omeprazole to 40 mg daily, which the quality process engineer may not want given her renal insufficiency, [...] stop omeprazole. She describes that when her quality process engineer had told her to stop the famotidine she had also been on omeprazole at that time and he had advised her that she did not need both medications at that time. I advised her that I think that was a quite reasonable recommendation. Prior to increasing the dose of omeprazole to 40 mg daily, which the quality process engineer may not want given her renal insufficiency, [...] stop omeprazole. She describes that when her quality process engineer had told her to stop the famotidine she had also been on omeprazole at that time and he had advised her that she did not need both medications at that time. I advised her that I think that was a quite reasonable recommendation. Prior to increasing the dose of omeprazole to 40 mg daily, which the quality process engineer may not want given her renal insufficiency, [...] IBC (FE) 07/27/2025 CBC w DIFF 07/27/2025 Liver Panel 07/27/2025 Ferritin 07/27/2025 Vitamin B12 and Folate 07/27/2025 US abdomen complete 07/27/2025 Future Test Test Name Order Date UPPER GI ENDOSCOPY 07/22/2018 COLONOSCOPY 07/22/2018 Next Appt Details Provider Name:Mirza Palencia , 11/09/2025 11:10:00 AM, [address] [facility], [address], [place], [address], Insurance Providers Payer Name Payer Address Payer Phone Subscriber Number Group Number Insured Name Patient Relationship to Insured Coverage Start Date Coverage End Date [facility] [address] [place] [address] [phone] [id number] ANA PETERSON Self - patient is the insured Medical (General) History Medical History History ICD Code NIDDM Hypertension Denies [place],CVA,Lung disease,renal disease GERD- EGD in August revealed only a small hiatal [...] Date(Month/Year) Cataracts CAROL Left patella knee surgery 1996
--- OUTSIDE RECORDS SUMMARY | 2025-08-10 16:52 | XMS_ITS | Patient Health Record ---
Author Organization Mirza Olsen III, MD Address [address] [place] [address] Care Team Providers Care High School Vice Principal Name Role Phone Seble MCLAIN, [facility] Primary Care Provider Mirza Russo Unavailable [phone] Allergies Allergen (clinical drug ingredient) Drug/Non Drug [...] Problem Status W/U Status Risk Notes Problem 413539999 Anemia, unspecified type (D64.9) Active confirmed She [...] This is usually done by nephrology. Problem 644819988 Pure hypercholester olemia, unspecified (E78.00) Active confirmed I recommended that she maintain her weight at this level and have her lipids checked 2 or 3 times a year. Problem 63623843 Hypothyroidism , unspecified type (E03.9) Active confirmed She appears to be euthyroid and will continue on current medications. Problem 093797935 Type 2 diabetes mellitus without complication, unspecified whether alf insulin use (E11.9) Active confirmed She was continued on her usual diabetic regimen. Vital Signs Heart Rate 99 /min 03/16/2025 Temperature 97.2 degrees Fahrenheit 03/16/2025 Blood pressure diastolic 85 mm Hg 03/16/2025 Height 58.5 in 03/16/2025 Blood pressure systolic 149 mm Hg 03/16/2025 Weight 117 lbs 03/16/2025 BMI 24.03 kg/m2 03/16/2025 Encounters Encounter Location Date Provider Diagnosis Mirza Olsen III, MD [address] [place] [address] [address] [place], [place] [address] 10/05/2024 Mirza Olsen Anemia, unspecified type D64.9 ; Type 2 diabetes mellitus without complication, unspecified whether alf insulin use E11.9 ; Hypothyroidism, unspecified type E03.9 and Pure hypercholesterolemia, unspecified E78.00 Mirza Olsen III, MD [address] [place] [address] [place] [address] 03/16/2025 Mirza Olsen Anemia, unspecified type D64.9 ; Type 2 diabetes mellitus without complication, unspecified whether alf insulin use E11.9 ; Pure hypercholesterolemia, unspecified [...] 2 diabetes mellitus without complication, unspecified whether alf insulin use (ICD-10 - E11.9) Her diabetes [...] diabetes mellitus without complication, unspecified whether long term care pharmacist insulin use (ICD-10 - E11.9) She was [...] Details Provider Name:Mirza Olsen, 09/14/2025 02:30:00 PM, [address] [place] [address] [address], [place], [address], Insurance Providers Payer Name Payer Address Payer Phone Subscriber Number Group Number Insured Name Patient Relationship to Insured Coverage Start Date Coverage End Date [facility] [address] [place], [place] [id number] VICENTE PETERSON Self - patient is the insured MEDICARE NGS [address] [place] [address] [id number] VICENTE PETERSON Self - patient is the insured Medical (General) History Medical History History ICD Code Iron deficiency anemia Diabetes Osteoarthritis Degenerative disc disease cervical spine Hyperlipidemia Hypothyroid Fractured patella Osteoporosis Vitamin D deficiency Gout Lumbar spondylosis Hysterectomy 1986 Surgical History Surgery Date(Month/Year) Hysterectomy 1987 Repair fracture of patella 1995
== END 2025-08-10 14:33 | disposition home or self-care (01) ==
LOC: HO.HKA 14:17
PROVIDERS: PCP Internal Medicine; Visit Provider Internal Medicine Hypertension Specialist
DX: N18.9 Chronic kidney disease, unspecified (principal); D64.9 Anemia, unspecified
CPT/HCPCS: 99214

== ENCOUNTER 2025-09-17 08:33 | Outpatient (REF) | payer BC, SELFPAY ==
--- OUTSIDE RECORDS SUMMARY | 2024-05-18 09:00 | XMS_ITS ---
Author Organization Mirza Olsen III, MD Address [address] [place] [address] Care Team Providers Care Traffic Engineer Name Role Phone Seble MCLAIN, [facility] Primary Care Provider Dr. Mirza Russo III Unavailable [phone] Allergies Allergen (clinical drug ingredient) Drug/Non Drug Allergy documented on EMR Reaction Allergy Type Onset Date Status metformin Metformin Unknown Drug Allergy Active lisinopril Lisinopril Unknown Drug Allergy Activ e Ferrous Sulfate Unknown Drug Allergy A ctive Results Component Value Reference Range Notes PROFILE, RANDOM (COMPREHENSI VE METABOLIC) Reviewed date:03/09/2025 09:34:58 AM Interpretation: Performing Lab: Notes/Report: RETICULOCYTE COUNT,CORRECTED Reviewed date:03/09/2025 09:35:07 AM Interpretation: Performing Lab: Notes/Report: CBC WITH AUTO DIFF Reviewed date:03/09/2025 09:35:33 AM Interpretation: Performing Lab: Notes/Report: Ferritin Reviewed date:03/09/2025 09:35:16 AM Interpretation: Performing Lab: Notes/Report: Folate Reviewed date:03/09/2025 09:35:25 AM Interpretation: Performing Lab: Notes/Report: REASON FOR VISIT Iron deficiency anemia Medications Medication SIG (Take, Route, Frequency, Duration) Notes Start Date End Date Status Losartan Potassium-HCTZ 100-12.5 MG TAKE 1 TABLET BY MOUTH EVERY DAY Oral Active Pravastatin Sodium 20 MG Oral Active [facility]S Vitamin B-12 1000 MCG TAKE 1 TABLET BY MOUTH EVERY DAY Oral Active Biotin 5000 MCG 1 capsule Orally Onc e a day Active metFORMIN HCl 1000 MG Oral Active glipiZIDE ER 5 MG 1 tablet with food O rally Once a day Active Ferrous Gluconate 324 (38 Fe) MG 1 tablet Orally Once a day Active Januvia 100 MG 1 tablet Orally Once a day Active Omeprazole 20 MG 1 capsule 30 minutes before morning meal Orally Once a day Active Social History Tobacco Use: Social History Observation Description Date Details (start date - stop date) Never Smoker NA - NA Sex Assigned At : Social History Observation Description Sex Assigned At Female Tobacco Use/Smoking Question Answer Notes Patient is a nonsmoker Alcohol Screen Question Answer Notes Did you have a drink containing alcohol in the p ast year? No Points 0 Interpretation Negative Problems Problem Type SNOMED Code ICD Code Onset Dates Problem Status W/U Status Risk Notes Problem 943127715 Anemia, unspecified type (D64.9) Active confirmed She has been compliant with iron therapy and her vascular remains low at 16. This is however in the normal range and mean cell volume is normal at 83. The hematocrit of 32% is likely from her mild renal failure. She may benefit from erythropoietin injections. I will discuss this with primary care. This is usually done by nephrology. Problem 75263115 Hypothyroidism , unspecified type (E03.9) Active confirmed She appears to be euthyroid and will continue on current medications. Problem 293227557 Pure hypercholester olemia, unspecified (E78.00) Active confirmed I recommended that she maintain her weight at this level and have her lipids checked 2 or 3 times a year. Problem [id number] Type 2 diabetes mellitus without complication, unspecified whether fdc insulin use (E11.9) Active confirmed She was continued on her usual diabetic regimen. Vital Signs Temperature 97.4 degrees Fahrenheit 05/18/20 24 Blood pressure systolic 134 mm Hg 05/18/20 24 Blood pressure diastolic 76 mm Hg 024 Heart Rate 95 /min 05/18/2024 Height 58.5 in 05/18/2024 Weight 119 lbs 05/18/2024 BMI 24.45 kg/m2 05/18/2024 Encounters Encounter Location Date Provider Diagnosis Mirza Olsen III, MD [address] [place] [address] [address] [place], [place]IMI [id number] 05/18/2024 Mirza Olsen Anemia, unspecified type D64.9 ; Hypothyroidism, unspecified type E03.9 ; Pure hypercholesterolemia, unspecified E78.00 and Type 2 diabetes mellitus without complication, unspecified whether exterminator termite insulin use E11.9 Assessments Encounter Date Diagnosis (ICD Code) Assessment Notes Treatment Notes Treatment Clinical Notes 05/18/2024 Anemia, unspecified type (ICD-10 - D64.9) The old records of the colonoscopy will be obtained. She will continue on ferrous gluconate. 05/18/2024 Hypothyroidism, unspecified type (ICD-10 - E03.9) She appears to be euthyroid and will continue on current medications. 05/18/2024 Pure hypercholesterolemi a, unspecified (ICD-10 - E78.00) I recommended that she maintain her weight at this level and have her lipids checked 2 or 3 times a year. 05/18/2024 Type 2 diabetes mellitus without complication, unspecified whether exterminator termite insulin use (ICD-10 - E11.9) She will continue on current medications at this time. Plan Of Treatment Medication Medication Name Sig Start Date Stop Date Notes Losartan Potassium-HCTZ 100-12.5 MG TAKE 1 TABLET BY MOUTH EVERY DAY Oral Pravastatin Sodium 20 MG Oral CVS Vitamin B-12 1000 MCG TAKE 1 TABLET BY MOUTH EVERY DAY Oral Biotin 5000 MCG 1 capsule Orally Once a day metFORMIN HCl 1000 MG Oral glipiZIDE ER 5 MG 1 tablet with food O rally Once a day Ferrous Gluconate 324 (38 Fe ) MG 1 tablet Orally Once a day Januvia 100 MG 1 tablet Orally Once a day Omeprazole 20 MG 1 capsule 30 minutes before morning meal Orally Once a day Next Appt Details Follow Up: 2 Weeks, Reason: Telehealth Provider Name:Mirza Olsen , 09/24/2025 03:30:00 PM, [address] [place] [address], [address], [phone], Progress Notes * PETERSON, CASTROIDOB:1955 (69 yo F)Acc No.[id number]:05/18/2024 Progress Notes Patient: VICENTE CALL Provider: Tabby Olsen MD :1955 A ge:69 Y S ex:Female Date:05/18/2024 Address:[address] [place] [address] Pcp:Dari Pruett MD Subjective: * Chief Complaints: * I julio deficiency anemia * HPI: C OVID-19 Screening: She is a very pleasant 69-year-old woman from [place] who was referred by her primary care physician,Dr. Dari Pruett, for evaluation and management of iron deficiency anemia long-standing. The patient is intolerant of ferrous sulfate but can take ferrous gluconate. She has been on that for a prolonged period of time without difficulty. She has had no detectable bleeding. She has a history of endoscopy and colonoscopy with negative findings. Questions H ave you experienced fever, chills, cough, sore throat, shortness of breath, difficulty breathing, muscle aches, loss of taste or smell? N o H ave you been exposed to the virus within the last 10 days? N o H ave you travelled internationally in the last 10 days? N o H ave you been exposed to COVID-19 in the past? N o * ROS: G eneral/Constitutional: pain o nly normal aches and pains. C hills d enies.?Fatigue a dmits. F ever d enies. E NT: Decreased hearing d enies. R espiratory: Cough d enies. C ardiovascular: Chest pain with exertion d enies. D yspnea on exertion?denies. S hortness of breath d enies. G astrointestinal: Constipation d enies. D ecreased appetite d enies.?Diarrhea d enies. H eartburn d enies. N ausea d enies. R ectal bleeding?denies. V omiting d enies. H ematology: bruising d enies. p etechiae d enies. S wollen glands n one have been noted. G enitourinary: Frequent urination d enies. M usculoskeletal: Muscle aches d enies. P ainful joints d enies. S ciatica d enies. W eakness d enies. S kin: Itching d enies. R marimar d enies. S kin lesion(s)?denies. N eurologic: Difficulty speaking d enies. D izziness d enies.?Headache d enies. L ow back pain d enies. P sychiatric: Depressed mood d enies. * Medical History: * Surgical History: R epair fracture of patella 1996Hysterectomy 1986 * Hospitalization/Major Diagno stic Procedure: D enies Past Hospitalization * Family History: There is no family history of cancer family syndrome. She is not aware of any family history of mental illness or substance use disorder or addiction. * Social History: T obacco Use: T obacco Use/Smoking P atient is a n onsmoker D rugs/Alcohol: D rugs H ave you used drugs other than those for medical reasons in the past 12 months? N o Alcohol Screen D id you have a drink containing alcohol in the past year? 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 * Medications: T akingBiotin 5000 MCG Capsule 1 capsule Orally Once a dayglipiZIDE ER 5 MG Tablet Extended Release 24 Hour 1 tablet with food Orally Once a dayFerrous Gluconate 324 (38 Fe) MG Tablet 1 tablet Orally Once a dayJanuvia 100 MG Tablet 1 tablet Orally Once a daymetFORMIN HCl 1000 MG Tablet 1 tablet with a meal Orally twice a dayLosartan Potassium-HCTZ 100-12.5 MG Tablet TAKE 1 TABLET BY MOUTH EVERY DAY Oral Pravastatin Sodium 20 MG Tablet 1 tablet Orally Once a dayCVS Vitamin B-12 1000 MCG Tablet TAKE 1 TABLET BY MOUTH EVERY DAY Oral Omeprazole 20 MG Capsule Delayed Release 1 capsule 30 minutes before morning meal Orally Once a dayTaking Biotin 5000 MCG Capsule 1 capsule Orally Once a dayTaking glipiZIDE ER 5 MG Tablet Extended Release 24 Hour 1 tablet with food Orally Once a dayTaking Ferrous Gluconate 324 (38 Fe) MG Tablet 1 tablet Orally Once a dayTaking Januvia 100 MG Tablet 1 tablet Orally Once a dayTaking metFORMIN HCl 1000 MG Tablet 1 tablet with a meal Orally twice a dayTaking Losartan Potassium-HCTZ 100-12.5 MG Tablet TAKE 1 TABLET BY MOUTH EVERY DAY Oral Taking Pravastatin Sodium 20 MG Tablet 1 tablet Orally Once a dayTaking CVS Vitamin B-12 1000 MCG Tablet TAKE 1 TABLET BY MOUTH EVERY DAY Oral Taking Omeprazole 20 MG Capsule Delayed Release 1 capsule 30 minutes before morning meal Orally Once a dayDiscontinuedNaproxen 500 MG Tablet Oral Medication List reviewed and reconciled with the patientDiscontinued Naproxen 500 MG Tablet Oral Medication List reviewed and reconciled with the patient * Allergies: M etformin: Side EffectsLisinopril: Side EffectsFerrous Sulfate: Side Effects Objective: * Vitals: H t: 58.5, Wt:119, BMI:24.45, BP:134/76, HR:95, Temp:97.4, Ht-cm: 148.59, Wt-k.98. * Examination: G eneral Examination: GENERAL APPEARANCE: p leasant, well nourished, well developed, in no acute distress, calm and relaxed , woman. HEAD: a traumatic, normocephalic. EYES: e sandip, perrla, anicteric, conjugate, Mucous membranes pink. EARS: n ormal. NOSE: s eptum intact. ORAL CAVITY: n ormal, unremarkable. NECK/THYROID: n o jugular venous distention, no carotid bruit, thyroid normal. LYMPH NODES: n o enlarged lymph nodes,spleen normal. SKIN: n o suspicious lesions, anicteric. HEART: n o clicks, gallops, murmurs, or rubs, regular rhythm, S1, S2 normal, no s3, or vascular bruits. LUNGS: c lear to auscultation . BREASTS: n ot examined. ABDOMEN: b owel sounds normal, no ascites, no organomegaly, no mass. RECTAL EXAM: n ot examined. MUSCULOSKELETAL: e xtremities unremarkable, no clubbing, cyanosis or edema. PERIPHERAL PULSES: n ormal. NEUROLOGIC: a lert and oriented, cranial nerves 2-12 grossly intact, deep tendon reflexes 2+ symmetrical, motor strength normal upper and lower extremities, sensory exam intact. PSYCH: a lert, oriented. Assessment: * Assessment: 1. A nemia, unspecified type - D64.9 (Primary), The old records of the colonoscopy will be obtained. She will continue on ferrous gluconate. 2 . H ypothyroidism, unspecified type - E03.9, She appears to be euthyroid and will continue on current medications. 3 . P ure hypercholesterolemia, unspecified - E78.00, I recommended that she maintain her weight at this level and have her lipids checked 2 or 3 times a year. 4 . T ype 2 diabetes mellitus without complication, unspecified whether exterminator termite insulin use - E11.9, She will continue on current medications at this time. Plan: * Treatment: 2. H ypothyroidism, unspecified type L AB: PROFILE, RANDOM (COMPREHENSIVE METABOLIC) L AB: RETICULOCYTE COUNT,CORRECTED L AB: CBC WITH AUTO DIFF L AB: Ferritin L AB: Folate 3. P ure hypercholesterolemia, unspecified L AB: PROFILE, RANDOM (COMPREHENSIVE METABOLIC) L AB: RETICULOCYTE COUNT,CORRECTED L AB: CBC WITH AUTO DIFF L AB: Ferritin L AB: Folate 4. T ype 2 diabetes mellitus without complication, unspecified whether exterminator termite insulin use L AB: PROFILE, RANDOM (COMPREHENSIVE METABOLIC) L AB: RETICULOCYTE COUNT,CORRECTED L AB: CBC WITH AUTO DIFF L AB: Ferritin L AB: Folate 5. O thers Continue metFORMIN HCl Tablet, 1000 MG, Oral; C ontinue Losartan Potassium-HCTZ Tablet, 100-12.5 MG, TAKE 1 TABLET BY MOUTH EVERY DAY, Oral; C ontinue Pravastatin Sodium Tablet, 20 MG, Oral; Continue CVS Vitamin B-12 Tablet, 1000 MCG, TAKE 1 TABLET BY MOUTH EVERY DAY, Oral; C ontinue glipiZIDE ER Tablet Extended Release 24 Hour, 5 MG, 1 tablet with food, Orally, Once a day; C ontinue Ferrous Gluconate Tablet, 324 (38 Fe) MG, 1 tablet, Orally, Once a day; C ontinue Januvia Tablet, 100 MG, 1 tablet, Orally, Once a day; C ontinue Omeprazole Capsule Delayed Release, 20 MG, 1 capsule 30 minutes before morning meal, Orally, Once a day. * Procedure Codes: * Preventive Medicine: DM Care Plan: P atient Lifestyle Goals P atient wants to be able to manage diabetes without too much effort. T reatment Goals H bA1C < 7.0, Blood Sugars less than < 115. B arriers n o barriers. S elf-Managment Goals I ncrease exercise to 3 times a week for 30 mins, Stop drinking juice and/or soda, replace with more water. * Follow Up: 2 Weeks (Reason: Telehealth) * Images: * Sign off status: Completed true * Provider: Tabby Olsen MD Date: 0 05/18/2024 Generated for Vaishnavi delaney/Valentin/Wilda on: 08:56 AM EDT History and Physical Notes * HPI (History of Present Illness) Category Sub-Category Detail Notes COVID-19 Screening Questions Have you had any new onset fever, chills, cough, congestion, sore throat, shortness of breath, muscle aches?: No Have you been exposed to the virus withi n the last 10 days?: No Have you travelled internationally in [facility] last 10 days?: No Have you been exposed to COVID-19 in the past?: No Examination Category Sub-Category Detail Notes General Examination GENERAL APPEARANCE: pleasant , well nourished, well developed, in no acute distress, calm and relaxed , woman HEAD: atraumatic, normocep halic EYES: eomi, perrla, anicte lowell, conjugate, Mucous membranes pink EARS: normal NOSE: septum intact NECK/THYROID: no jugular venous di stention, no carotid bruit, thyroid normal HEART: no clicks, gallops, murmurs, or rubs, regular rhythm, S1, S2 normal, no s3, or vascular bruits LUNGS: clear to auscultatio n ABDOMEN: bowel sounds normal, no ascites, no organomegaly, no mass NEUROLOGIC: alert and oriented, cranial nerves 2-12 grossly intact, deep tendon reflexes 2+ symmetrical, motor strength normal upper and lower extremities, sensory exam intact SKIN: no suspicious lesion s, anicteric PERIPHERAL PULSES: normal BREASTS: not examined MUSCULOSKELETAL: extremities unremark able, no clubbing, cyanosis or edema LYMPH NODES: no enlarged lymph no deborah,spleen normal RECTAL EXAM: not examined PSYCH: alert, oriented ORAL CAVITY: normal, unremarkable
--- OUTSIDE RECORDS SUMMARY | 2024-06-02 11:30 | XMS_ITS ---
Author Organization Mirza Olsen III, MD Address [address] [place] [address] [place] [address] Care Team Providers Care Retort Operator Name Role Phone Seble MCLAIN, [facility] Primary Care Provider Nesha Olsen III, Dr. Blue Unavailable [phone] Allergies Allergen (clinical drug ingredient) Drug/Non Drug Allergy documented on EMR Reaction Allergy Type Onset Date Status metformin Metformin Unknown Drug Allergy Active lisinopril Lisinopril Unknown Drug Allergy Activ e Ferrous Sulfate Unknown Drug Allergy A ctive Results Component Value Reference Range Notes CBC [...] Date Provider Diagnosis Mirza Olsen III, MD [address] [place] [address] [address] [place] [phone] 06/02/2024 Mirza Olsen Anemia, unspecified type D64.9 ; Hypothyroidism, unspecified type E03.9 ; Pure hypercholesterolemia, unspecified E78.00 and Type 2 diabetes mellitus without complication, unspecified whether rat exterminator insulin use E11.9 Assessments Encounter Date Diagnosis [...] 2 diabetes mellitus without complication, unspecified whether senior living insulin use (ICD-10 - E11.9) She will [...] Up: 4 Months, Reason: OV Provider Name:Mirza Olsen , 09/24/2025 03:30:00 PM, [address] [place] [address] DENIS GAUTAM, [place], [phone], Progress Notes * SNOW PETERSON:1955 (69 yo F)Acc No.[id number]:06/02/2024 Patient: VICENTE CALL Provider: Tabby Olsen MD :1955 A ge:69 Y S ex:Female Date:06/02/2024 Address:[address] [place], [place] [id number] Pcp:Dari Pruett MD Subjective: * Chief Complaints: [...] ocation of provider rendering services: { ...} [address] [place] [address] [place] [address] L ocation of patient: avel narvaez listed [...] n onsmoker 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 She is for [...] 2 diabetes mellitus without complication, unspecified whether rat exterminator insulin use - E11.9, She will continue [...] * Provider: Tabby Olsen MD Date: 0 06/02/2024 Generated for Vaishnavi delaney/Valentin/Wilda on: 1 08:56 AM EDT History and Physical Notes * HPI (History of Present Illness) Category Sub-Category Detail Notes Telehealth Location of located within [facility] rendering services:: {...} [address] [place] [address] [place] [address] Location of patient:: address listed in demographics [...]
--- OUTSIDE RECORDS SUMMARY | 2024-10-05 10:30 | XMS_ITS ---
Author Organization Mirza Olsen III, MD Address [address] [place] [address] Care Team Providers Care Vault Teller Name Role Phone Seble MCLAIN, [facility] Primary Care Provider Nesha Olsen III, Dr. 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 She is for [...] 2 diabetes mellitus without complication, unspecified whether nursing home insulin use - E11.9 N otes :Her [...] 2 diabetes mellitus without complication, unspecified whether nursing home insulin use L AB: PROFILE, RANDOM (COMPREHENSIVE [...] Tabby Olsen MD Date: 12/05/2023 Generated for Rustami ng/Valentin/eTransmitting on: 08:56 AM EDT History and Physical Notes * HPI (History of Present Illness) Category Sub-Category Detail Notes COVID-19 Screening Questions Have you had any new onset fever, chills, cough, congestion, sore throat, shortness of breath, muscle aches?: No Have you been exposed to the virus withi n the last 10 days?: No Have you travelled internationally in [facility] last 10 days?: No Have [...]
--- OUTSIDE RECORDS SUMMARY | 2025-03-16 10:00 | XMS_ITS ---
Author Organization Mirza Olsen III, MD Address [address] [place] [address] [place] [address] Care Team Providers Care Elementary Assistant Teacher Name Role Phone Seble MCLAIN, [facility] Primary Care Provider Dr. Mirza Russo III Unavailable Allergies Allergen (clinical drug ingredient) Drug/Non Drug Allergy documented on EMR Reaction Allergy Type Onset Date Status metformin Metformin Unknown Drug Allergy Active lisinopril Lisinopril Unknown Drug Allergy Activ e Ferrous Sulfate Unknown Drug Allergy A ctive REASON FOR VISIT Hypothyroid, Anemia, Diabetes, Hyperlipidemia, Diabetic nephropathy Medications Medication SIG (Take, Route, Frequency, Duration) Notes Start Date End Date Status Januvia 100 MG 1 tablet Orally Once a day Active Ferrous Gluconate 324 (38 Fe) MG 1 tablet Orally Once a day Active Amitriptyline HCl 10 MG 1 tablet at bedt angela Orally Once a day Active Biotin 5000 MCG 1 capsule Orally Onc e a day Active Omeprazole 20 MG 1 capsule 30 minutes before morning meal Orally Once a day Active Pravastatin Sodium 20 MG Oral Active Losartan Potassium-HCTZ 100-12.5 MG TAKE 1 TABLET BY MOUTH EVERY DAY Oral Active metFORMIN HCl 1000 MG Oral Active glipiZIDE ER 5 MG 1 tablet with food Orally Once a day Active [facility] Vitamin B-12 1000 MCG TAKE 1 TABLET BY MOUTH EVERY DAY Oral Active Pravastatin Sodium 80 MG 1 tablet Orally Once a day 03/16/2025 Active B-12 1000 MCG as directed Orally 03/16/2025 Active Social History Tobacco Use: Social History Observation Description Date Details (start date - stop date) Never Smoker NA - NA Sex Assigned At : Social History Observation Description Sex Assigned At Female Tobacco Use/Smoking Question Answer Notes Patient is a nonsmoker Vital Signs Temperature 97.2 degrees Fahrenheit 03/16/20 25 Blood pressure systolic 149 mm Hg 03/16/20 25 Blood pressure diastolic 85 mm Hg 025 Heart Rate 99 /min 03/16/2025 Height 58.5 in 03/16/2025 Weight 117 lbs 03/16/2025 BMI 24.03 kg/m2 03/16/2025 Encounters Encounter Location Date Provider Diagnosis Mirza Olsen III, MD [address] [place] [address] [place] [address] 03/16/2025 Mirza Olsen Anemia, unspecified type D64.9 ; Type 2 diabetes mellitus without complication, unspecified whether fdc insulin use E11.9 ; Pure hypercholesterolemia, unspecified E78.00 and Hypothyroidism, unspecified type E03.9 Assessments Encounter Date Diagnosis (ICD Code) Assessment Notes Treatment Notes Treatment Clinical Notes 03/16/2025 Anemia, unspecified type (ICD-10 - D64.9) She has been compliant with iron therapy and her vascular remains low at 16. This is however in the normal range and mean cell volume is normal at 83. The hematocrit of 32% is likely from her mild renal failure. She may benefit from erythropoietin injections. I will discuss this with primary care. This is usually done by nephrology. 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 03/16/2025 Pure hypercholesterolem ia, unspecified (ICD-10 - E78.00) I recommended that she maintain her weight at this level and have her lipids checked 2 or 3 times a year. 03/16/2025 Hypothyroidism, unspecified type (ICD-10 - E03.9) She appears to be euthyroid and will continue on current medications. Plan Of Treatment Medication Medication Name Sig Start Date Stop Date Notes Januvia 100 MG 1 tablet Orally Once a day Ferrous Gluconate 324 (38 Fe) MG 1 tablet Orally Once a da y Amitriptyline HCl 10 MG 1 tablet at bedt angela Orally Once a day Biotin 5000 MCG 1 capsule Orally Onc e a day Omeprazole 20 MG 1 capsule 30 minutes before morning meal Orally Once a day Pravastatin Sodium 20 MG Oral Losartan Potassium-HCTZ 100- 12.5 MG TAKE 1 TABLET BY MOUTH EVERY DAY Oral metFORMIN HCl 1000 MG Oral glipiZIDE ER 5 MG 1 tablet with food O rally Once a day [facility] Vitamin B-12 1000 MCG TAKE 1 TABLET BY MOUTH EVERY DAY Oral Pravastatin Sodium 80 MG 1 tablet Orally Once a day 2024 B-12 1000 MCG as directed Orally 03/16/2025 Pending Test Test Name Order Date PROFILE, FASTING (COMPREHENSIVE METABOLI C) 03/16/2025 CBC w DIFF 03/16/2025 Ferritin 03/16/2025 Hemoglobin A1c 03/16/2025 Next Appt Details Follow Up: 6 Months, Reason: ov review labs Provider Name:Mirza Olsen , 09/24/2025 03:30:00 PM, [address] [place] [address] [place] [address], [place], [address], Progress Notes * CASTRO PETERSONIDOB:1955 (69 yo F)Acc No.[id number]:03/16/2025 Progress Notes Patient: Tyrell GOMEZ VICENTE Provider: Tabby Olsen MD :1955 A ge:69 Y S ex:Female Date:03/16/2025 Address:[address] [place] [address] Pcp:Dari Pruett MD Subjective: * Chief Complaints: * H ypothyroidAnemiaDiabetesHyperlipidemiaDiabetic nephropathy * HPI: C OVID-19 Screening: Questions H ave you had any new onset fever, chills, cough, congestion, sore throat, shortness of breath, muscle aches? N o She returns for ongoing management of her iron deficiency anemia. She is feeling healthy and well and has been compliant with her iron therapy and all other medications. On March 09, 2025 the white count was 11.5 hematocrit 32.1 mean cell volume 83 platelets 364 glucose 132 BUN 21 creatinine 1.19 ferritin 16 reticulocytes 1.7. Her current GFR is 49. In July 2024 year was 58 and in May 2024 was 53. I have approached her primary care physician about there was some of having nephrology involved to prevent further loss of renal function. Also I would like her opinion on erythropoietin injections to increase the hematocrit. Her ferritin is in the normal range although it's a low and and I have continued her on the ferrous sulfate oral therapy. A follow was arranged. No other changes in her regimen were made. * ROS: G eneral/Constitutional: pain o nly [...] enies. S kin: Itching d enies. R marimra d enies. S kin lesion(s)?denies. 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 * Medications: T akingB-12 1000 MCG Capsule as directed Orally Pravastatin Sodium 80 MG Tablet 1 tablet Orally Once a day metFORMIN HCl 1000 MG Tablet Oral Losartan Potassium- HCTZ 100-12.5 MG Tablet TAKE 1 TABLET BY MOUTH EVERY DAY Oral [facility] Vitamin B-12 1000 MCG Tablet [...] Capsule 1 capsule Orally Once a day Amitriptyline HCl 10 MG Tablet 1 tablet at bedtime Orally Once a day Taking B-12 1000 MCG Capsule as directed Orally Taking Pravastatin Sodium 80 MG Tablet 1 tablet Orally Once a day Taking metFORMIN HCl 1000 MG Tablet Oral Taking Losartan Potassium-HCTZ 100-12.5 MG Tablet TAKE 1 TABLET BY MOUTH EVERY DAY Oral Taking [facility] Vitamin B-12 1000 MCG [...] Capsule 1 capsule Orally Once a day Taking Amitriptyline HCl 10 MG Tablet 1 tablet at bedtime Orally Once a day DiscontinuedPravastatin Sodium 20 MG Tablet Oral Medication List reviewed and reconciled with the patientDiscontinued Pravastatin Sodium 20 MG Tablet Oral Medication List reviewed and reconciled with the patient * Allergies: M etformin: Side EffectsLisinopril: Side EffectsFerrous Sulfate: Side Effectsno[Allergies Verified] Objective: * Vitals: H t: 58.5, Wt:117, BMI:24.03, BP:149/85, HR:99, Temp:97.2, Ht-cm: 148.59, Wt-k.07. * Examination: G eneral Examination: GENERAL APPEARANCE: [...] unspecified type - D64.9 (Primary) N otes :She has been compliant with iron therapy and her vascular remains low at 16. This is however in the normal range and mean cell volume is normal at 83. The hematocrit of 32% is likely from her mild renal failure. She may benefit from erythropoietin injections. I will discuss this with primary care. This is usually done by nephrology. 2 . T ype 2 diabetes mellitus without complication, unspecified whether marine oil terminal superintendent insulin use - E11.9 N otes :She was continued on her usual diabetic regimen. 3 . P ure hypercholesterolemia, unspecified - E78.00 N otes :I recommended that she maintain her weight at this level and have her lipids checked 2 or 3 times a year. 4 . H ypothyroidism, unspecified type - E03.9 N otes :She appears to be euthyroid and will continue on current medications. Plan: * Treatment: 2. T ype 2 diabetes mellitus without complication, unspecified whether fdc insulin use L AB: PROFILE, FASTING (COMPREHENSIVE METABOLIC) L AB: CBC w DIFF L AB: Ferritin L AB: Hemoglobin A1c 3. O thers Continue metFORMIN HCl Tablet, [...] arriers n o barriers. S elf-Managment Goals S top drinking juice and/or soda, replace with more water, Increase exercise to 3 times a week for 30 mins, Take blood sugars twice daily and keep a log. Bring log in to next appointment. * Follow Up: 6 Months (Reason: ov review labs) * Images: * Sign off status: Completed true * Provider: Tabby Olsen MD Date: 0 03/16/2025 Generated for Vaishnavi delaney/Valentin/Wilda on: 08:57 AM EDT History and Physical Notes * HPI (History of Present Illness) Category Sub-Category Detail Notes COVID-19 Screening Questions Have you had any new onset fever, chills, cough, congestion, sore throat, shortness of breath, muscle aches?: No Examination Category Sub-Category Detail Notes General [...]
--- OUTSIDE RECORDS SUMMARY | 2025-09-14 13:00 | XMS_ITS ---
Author Organization Mirza Olsen III, MD Address [address] [place] [address] [place] [address] Care Team Providers Care Machine Feed Operator Name Role Phone Seble MCLAIN, Dari Primary Care Provider Dr. Mirza Russo III [facility] REASON FOR VISIT Follow up Social History Sex Assigned At : Social History Observation Description Sex Assigned At Female Encounters Encounter Location Date Provider Diagnosis Mirza Olsen III, MD [address] [place] [address] [place] [address] 09/14/2025 Mirza Olsen Plan Of Treatment Next Appt Details Provider Name:Mirza Olsen , 09/24/2025 03:30:00 PM, [address] [place] [address] [address] [address] [place] [address], [address], Progress Notes * CASTRO PETERSONIDOB:1955 (70 yo F)Acc No.[id number]:09/14/2025 Progress Notes Patient: VICENTE CALL Provider: Tabby Olsen MD :1955 A ge:70 Y S ex:Female Date:09/14/2025 Address:[address] [place] [address] Pcp:Dari Pruett MD Subjective: * Chief Complaints: [...] MD Date: Generated for Vaishnavi delaney/Valentin/Wilda on: 08:57 AM EDT
--- NOTE | ~2025-09-17 | US_ITS ---
CLINICAL HISTORY: EPIGASTRIC BURNING --- Additional Notes or Special Instructions: WO US abdomen complete Comparison: None provided Findings: The visualized pancreas is normal. The aorta and inferior vena cava are normal caliber. The liver is normal in size and homogeneous hyperechoic. There is no intrahepatic bile duct dilatation. The common duct is 6 mm in diameter. The gallbladder is normal. There is no sonographic Edward sign. The main portal vein is antegrade. The right kidney is 9.1 cm in length. The left kidney is 9.4 cm in length. The spleen is normal. 9.1 cm. No ascites. IMPRESSION: 1. Hepatic steatosis; nonalcoholic steatohepatitis versus viral hepatitis. This document has been electronically signed by: Virgil Rousseau MD on 09/18/2025 18:11:03
--- OUTSIDE RECORDS SUMMARY | 2025-09-17 08:56 | XMS_ITS | Patient Health Record ---
Author Organization [facility] Address [address] [place] [address] Care Team Providers Care Licensed Mass Real Estate Appraiser Name Role Phone Dari Pruett Primary Care Provider UnavailMirza Mae Unavailable [phone] Allergies Allergen (clinical drug ingredient) Drug/Non Drug Allergy documented on EMR Reaction Allergy Type Onset Date Status metformin Metformin HCl DIARRHEA Drug Allergy Act chico lisinopril Lisinopril COUGH Drug Allergy Activ e Results Component Value Reference Range Notes Liver Panel Reviewed date:08/15/2025 09:59:11 AM Interpretation: Performing Lab:[facility], [address] [place] [id number] Notes/Report: Bilirubin Total 0.2 0.0-1.0 mg/dL Bilirubin [...] Acetonide 0.5 % APPLY TOPICALLY TWICE DAILY External; Duration: 30 Active Levothyroxine Sodium 25 MCG 1 tablet on an empty stomach in the morning Orally Once a day Active Vitamin B-12 1000 MCG TAKE 1 TABLET BY M OUTH EVERY DAY Oral; Duration: 90 Active Famotidine 40 MG 1 tablet Orally Twic e a day--every morning and every late afternoon/early evening; Duration: 30 days 07/27/2025 Active Losartan Potassium 25 [...] TAKE 1 TABLET BY MOUTH EVERY DAY Oral; Duration: 90 Active Aspirin 81 81 MG 1 [...] Problem Status W/U Status Risk Notes Problem Screening for malignant neoplasm of colon (700694356) Encounter for screening for malignant neoplasm of colon (Z12.11) Active confirmed Problem Epigastric pain (41647428) Abdominal pain, epigastric (R10.13) Active confirmed Problem Gastroesophageal reflux disease without esophagitis (569086636) Gastroesophageal reflux disease without esophagitis (K21.9) Active confirmed Problem Gastroesophageal reflux disease (525249567) Gastroesophageal reflux disease, esophagitis presence not specified (K21.9) Active confirmed Problem Anemia (553101253) Anemia (D64.9) Active confir med Problem Gastroesophageal reflux disease (518403582) GERD (gastroesophageal reflux disease) (K21.9) Active confirmed Problem Epigastric pain (92305442) Epigastric burning sensation (R10.13) Active confirmed Vital Signs Temperature 97.7 degrees Fahrenheit 07/27/2025 Blood pressure diastolic 01 mm Hg 07/27/2025 Height 59 in 07/27/2025 Blood pressure systolic 001 mm Hg 07/27/2025 Weight 117.6 lbs 07/27/2025 BMI 23.75 kg/m2 07/27/2025 Encounters Encounter Location Date Provider Diagnosis [facility] [address] [place] [address] 07/27/2025 Mirza Palencia Anemia D64.9 ; GERD (gastroesophageal reflux disease) K21.9 and Epigastric burning sensation R10.13 [facility] [address] [place] [address] 08/15/2025 Mirza Palencia Assessments Encounter Date Diagnosis (ICD Code) Assessment [...] stop omeprazole. She describes that when her library media assistant had told her to stop the famotidine she had also been on omeprazole at that time and he had advised her that she did not need both medications at that time. I advised her that I think that was a quite reasonable recommendation. Prior to increasing the dose of omeprazole to 40 mg daily, which the library media assistant may not want given her renal insufficiency, I am going to switch her back to a trial of famotidine 40 mg twice daily and have her [...] questions I can be of assistance with. They were comfortable with this plan. Thank you again for allowing me to [...] stop omeprazole. She describes that when her library media assistant had told her to stop the famotidine she had also been on omeprazole at that time and he had advised her that she did not need both medications at that time. I advised her that I think that was a quite reasonable recommendation. Prior to increasing the dose of omeprazole to 40 mg daily, which the library media assistant may not want given her renal insufficiency, I am going to switch her back to a trial of famotidine 40 mg twice daily and have her [...] questions I can be of assistance with. They were comfortable with this plan. Thank you again for allowing me to [...] stop omeprazole. She describes that when her library media assistant had told her to stop the famotidine she had also been on omeprazole at that time and he had advised her that she did not need both medications at that time. I advised her that I think that was a quite reasonable recommendation. Prior to increasing the dose of omeprazole to 40 mg daily, which the library media assistant may not want given her renal insufficiency, I am going to switch her back to a trial of famotidine 40 mg twice daily and have her [...] questions I can be of assistance with. They were comfortable with this plan. Thank you again for allowing me to [...] Name:Mirza Palencia , 11/09/2025 11:10:00 AM, [address], [address], [place], [address], Insurance Providers Payer Name Payer Address Payer Phone Subscriber Number Group Number Insured Name Patient Relationship to Insured Coverage Start Date Coverage End Date [facility] [address] [place] [address] [id number] ANA PETERSON Self - patient is the insured Medical (General) History Medical History History ICD Code NIDDM Hypertension Denies IN,CVA,Lung disease,renal disease GERD- EGD in August revealed [...]
--- OUTSIDE RECORDS SUMMARY | 2025-09-17 08:57 | XMS_ITS | Patient Health Record ---
Author Organization Mirza Olsen III, MD Address [address] [place] [address] [place] [address] Care Team Providers Care Central Sterile Tech Name Role Phone Seble MCLAIN, [facility] Primary Care Provider Dr. Mirza Russo [...] Problem Status W/U Status Risk Notes Problem 473083529 Anemia, unspecified type (D64.9) Active confirmed She [...] This is usually done by nephrology. Problem 277299661 Pure hypercholester olemia, unspecified (E78.00) Active confirmed I recommended that she maintain her weight at this level and have her lipids checked 2 or 3 times a year. Problem 97686574 Hypothyroidism , unspecified type (E03.9) Active confirmed She appears to be euthyroid and will continue on current medications. 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 car conductor insulin use E11.9 ; Hypothyroidism, unspecified type E03.9 and Pure hypercholesterolemia, unspecified E78.00 Mirza Olsen III, MD [address] [place] [address] [place], [place] [address] 03/16/2025 Mirza Olsen Anemia, unspecified type D64.9 ; Type 2 diabetes mellitus without complication, unspecified whether dining car conductor insulin use E11.9 ; Pure hypercholesterolemia, unspecified [...] 2 diabetes mellitus without complication, unspecified whether dining car conductor insulin use (ICD-10 - E11.9) Her diabetes [...] 2 diabetes mellitus without complication, unspecified whether dining car conductor insulin use (ICD-10 - E11.9) She was [...] A1c 03/16/2025 Next Appt Details Provider Name:Mirza Olsen , 09/24/2025 03:30:00 PM, [address] [place] [address] DR, [facility] [address], [place], [address], Insurance Providers Payer Name Payer Address Payer Phone Subscriber Number Group Number Insured Name Patient Relationship to Insured Coverage Start Date Coverage End Date [facility] [address] [place], [place] [id number] VICENTE PETERSON Self - patient is the insured MEDICARE NGS [address] [place] [address] [id number] VICENTE PETERSON Self - patient is the insured Medical (General) History Medical History History ICD Code Iron deficiency anemia Diabetes Osteoarthritis Degenerative disc disease cervical spine Hyperlipidemia Hypothyroid Fractured patella Osteoporosis Vitamin D deficiency Gout Lumbar spondylosis Hysterectomy 1986 Surgical History Surgery Date(Month/Year) Hysterectomy 1986 Repair fracture of patella 1995
== END 2025-09-17 08:34 | disposition home or self-care (01) ==
LOC: HO.US 08:33
PROVIDERS: PCP Internal Medicine; Visit Provider Internal Medicine
DX: R10.13 Epigastric pain (principal)
CPT/HCPCS: 76700

== ENCOUNTER → 2025-09-17 08:35 | Outpatient (BNV) | payer BC, SELFPAY | PROVIDERS: PCP Internal Medicine; Visit Provider Radiology Diagnostic Radiology | DX: K76.0 Fatty (change of) liver, not elsewhere classified (principal) | CPT/HCPCS: 76700 ==

== ENCOUNTER → 2025-10-01 14:15 | Outpatient (BNV) | payer BC, SELFPAY | PROVIDERS: PCP Internal Medicine; Visit Provider Internal Medicine | DX: Z12.31 Encounter for screening mammogram for malignant neoplasm of breast (principal) | CPT/HCPCS: 77063; 77067 ==

== ENCOUNTER 2025-10-01 14:30 | Outpatient (REF) | payer BC, SELFPAY ==
--- OUTSIDE RECORDS SUMMARY | 2024-05-18 09:00 | XMS_ITS ---
Author Organization Mirza Olsen III, MD Address [address] [place] [address] Care Team Providers Care Case Finishing Machine Adjuster Name Role Phone Seble MCLAIN, [facility] Primary Care Provider Mirza Russo III Unavailable [phone] Dr. Mirza Olsen III Unavailable [phone] Allergies Allergen (clinical drug ingredient) Drug/Non Drug [...] Problem Status W/U Status Risk Notes Problem [id number] Anemia, unspecified type (D64.9) Active confirmed She continues t o have unacceptable hemoglobin and hematocrit. The mean cell volume is normal. Her white blood cell count is unremarkable. The differential is not available. Platelets are normal. Protein electrophoresis and hemoglobin electrophoresis of both within normal limits. The anemia is likely a combination of mild renal disease and iron deficiency due to chronic blood loss. Her ferritin is 21 while taking an iron supplement. WI and will continue and she'll be followed carefully. Problem 52745541 Hypothyroidism , unspecified type (E03.9) Active confirmed He has been compliant with her thyroid. She appears to be euthyroid today. Problem 866922834 Pure hypercholester olemia, unspecified (E78.00) Active confirmed I recommended s he have her lipids checked periodically. Current fasting lipid profile available at this time. 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 The fasting glucose was elevated at 183. She has been compliant with her medication. Vital Signs Temperature 97.4 degrees Fahrenheit 05/18/20 24 Blood pressure systolic 134 mm Hg 05/18/20 24 Blood pressure diastolic 76 mm Hg 024 Heart Rate 95 /min 05/18/2024 Height 58.5 in 05/18/2024 Weight 119 lbs 05/18/2024 BMI 24.45 kg/m2 05/18/2024 Encounters Encounter Location Date Provider Diagnosis Mirza Olsen III, MD [address] [place] [address] [address] [place], [place]I [id number] 05/18/2024 Mirza Olsen Anemia, unspecified type D64.9 ; Hypothyroidism, unspecified type E03.9 ; Pure hypercholesterolemia, unspecified E78.00 and Type 2 diabetes mellitus without complication, unspecified whether 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 operator insulin use E11.9 Assessments Encounter Date Diagnosis [...] 2 diabetes mellitus without complication, unspecified whether residential insulin use (ICD-10 - E11.9) She will [...] Weeks, Reason: Telehealth Provider Name:Mirza Olsen , 04/08/2026 03:00:00 PM, [address] [place] [address] DR, [address], [place], [id number], Progress Notes * JT PETERSONB:1955 (69 yo F)Acc No.[id number]:05/18/2024 Progress Notes Patient: VICENTE CALL Provider: Tabby Olsen MD :1955 A ge:69 Y S ex:Female Date:05/18/2024 Address:[address] [place] [address] Pcp:Dari Pruett MD Subjective: * Chief Complaints: [...] N egative 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 She is for [...] 2 diabetes mellitus without complication, unspecified whether longshore equipment operator insulin use - E11.9, She will continue [...] 2 diabetes mellitus without complication, unspecified whether longshore equipment operator insulin use L AB: PROFILE, RANDOM (COMPREHENSIVE [...] MD Date: 0 05/18/2024 Generated for Vaishnavi delaney/Valentin/Tanjasmitting on: 1 03:04 PM EDT History and Physical Notes * HPI (History of Present Illness) Category Sub-Category Detail Notes COVID-19 Screening Questions Have you had any new onset fever, chills, cough, congestion, sore throat, shortness of breath, muscle aches?: No Have you been exposed to the virus withi n the last 10 days?: No Have you travelled internationally in [facility] last 10 days?: No Have you [...]
--- OUTSIDE RECORDS SUMMARY | 2024-06-02 11:30 | XMS_ITS ---
Author Organization Mirza Olsen III, MD Address [address] [place] [address] [place] [address] Care Team Providers Care Lean Process Deployment Consultant Name Role Phone Seble MCLAIN, [facility] Primary Care Provider Mirza Russo III Unavailable [phone] Dr. Mirza Olsen III Unavailable [phone] Allergies Allergen (clinical drug ingredient) Drug/Non Drug [...] Date Provider Diagnosis Mirza Olsen III, MD [address] [place] [address] [place] [address] 06/02/2024 Mirza Olsen Anemia, unspecified type D64.9 [...] complication, unspecified whether rat exterminator insulin use (ICD-10 - E11.9) She will [...] Months, Reason: OV Provider Name:Mirza Olsen , 04/08/2026 03:00:00 PM, [address] [place] [address] DENIS GAUTAM, [place], [address], Progress Notes * SNOW PETERSON:1955 (69 yo F)Acc No.[id number]:06/02/2024 Patient: VICENTE CALL Provider: Tabby Olsen MD :1955 A ge:69 Y S ex:Female Date:06/02/2024 Address:[address] [place], [place] [phone] Pcp:Dari Pruett MD Subjective: * Chief Complaints: [...] folic acid level and ferritin and reticulocyte [place] in the normal range. She has a mild anemia of chronic disease and of iron deficiency which is well compensated. She will be observed. She will continue on iron therapy. 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 She is for [...] diabetes mellitus without complication, unspecified whether senior care insulin use - E11.9, She will continue [...] Procedure Codes: 9 9442 PHONE E/M BY KOKO 11-20 MIN * Preventive Medicine: DM Care [...] MD Date: 0 06/02/2024 Generated for Vaishnavi delaney/Valentin/Annemarieitting on: 03:05 PM EDT History and Physical Notes * HPI (History of Present Illness) Category Sub-Category Detail Notes Telehealth Location of [facility] rendering services:: {...} [address] [place] [address] [place] [address] Location of patient:: address listed in demographics [...]
--- OUTSIDE RECORDS SUMMARY | 2024-10-05 10:30 | XMS_ITS ---
Author Organization Mirza Olsen III, MD Address [address] [place] [address] Care Team Providers Care Supervisor Belt And Link Assembly Name Role Phone Seble MCLAIN, [facility] Primary Care Provider Mirza Russo III Unavailable [phone] Dr. 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 She is for [...] 2 diabetes mellitus without complication, unspecified whether terminal press operator insulin use - E11.9 N otes :Her [...] 2 diabetes mellitus without complication, unspecified whether [facility] insulin use L AB: PROFILE, RANDOM (COMPREHENSIVE [...] true * Provider: Tabby Olsen MD Date: 12/05/2023 Generated for Vaishnavi delaney/Valentin/Wilda on: 03:05 PM EDT History and Physical Notes * HPI (History of Present Illness) Category Sub-Category Detail Notes COVID-19 Screening Questions Have you had any new onset fever, chills, cough, congestion, sore throat, shortness of breath, muscle aches?: No Have you been exposed to the virus withi n the last 10 days?: No Have you travelled internationally in [facility] last 10 days?: No Have you been [...]
--- OUTSIDE RECORDS SUMMARY | 2025-03-16 10:00 | XMS_ITS ---
Author Organization Mirza Olsen III, MD Address [address] [place] [address] [place] [address] Care Team Providers Care Four Slide Machine Operator Name Role Phone Seble MCLAIN, [facility] Primary Care Provider Mirza Russo III Unavailable [phone] Dr. Mirza Olsen III Unavailable Allergies Allergen [...] Date Provider Diagnosis Mirza Olsen III, MD [address] [place] [address] [place], [place] [address] 03/16/2025 Mirza Olsen Anemia, unspecified type D64.9 ; Type 2 diabetes mellitus without complication, unspecified whether watermaster insulin use E11.9 ; Pure hypercholesterolemia, unspecified [...] 2 diabetes mellitus without complication, unspecified whether watermaster insulin use (ICD-10 - E11.9) She was [...] ov review labs Provider Name:Mirza Olsen , 04/08/2026 03:00:00 PM, [address] [place] [address], [address], Progress Notes * CASTRO PETERSONIDOB:1955 (69 yo F)Acc No.[id number]:03/16/2025 Progress Notes Patient: VICENTE CALL Provider: Tabby Olsen MD :1955 A ge:69 Y S ex:Female Date:03/16/2025 Address:[address] [place] [address] Pcp:Dari Pruett MD Subjective: * Chief Complaints: [...] n onsmoker 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 She is for [...] 2 diabetes mellitus without complication, unspecified whether watermaster insulin use - E11.9 N otes :She [...] 2 diabetes mellitus without complication, unspecified whether watermaster insulin use L AB: PROFILE, FASTING (COMPREHENSIVE [...] off status: Completed true * Provider: Tabby Olesn MD Date: 0 03/16/2025 Generated for Vaishnavi delaney/Valentin/Wilda on: 03:05 PM [...]
--- OUTSIDE RECORDS SUMMARY | 2025-09-14 13:00 | XMS_ITS ---
Author Organization Mirza Olsen III, MD Address [address] [place] [address] [place] [address] Care Team Providers Care Gas Prover Name Role Phone Seble MCLAIN, Dari Primary Care Provider Mirza Russo III [phone] Dr. Mirza Olsen III Unavailable REASON FOR VISIT Follow up Social History Sex Assigned At : Social History Observation Description Sex Assigned At Female Encounters Encounter Location Date Provider Diagnosis Mirza Olsen III, MD [address] [place] [address] [place] [address] 09/14/2025 Mirza Olsen Plan Of Treatment Next Appt Details Provider Name:Mirza Olsen , 04/08/2026 03:00:00 PM, [address] [place] [address] [place], [address], Progress Notes * CASTRO PETERSONIDOB:1955 (70 yo F)Acc No.[id number]:09/14/2025 Progress Notes Patient: VICENTE CALL Provider: Tabby Olsen MD :1955 A ge:70 Y S ex:Female Date:09/14/2025 Address:[address] [place], [place] [id number] Pcp:Dari Pruett MD Subjective: * Chief Complaints: * 1 . Follow up. * Medical History: Objective: * Vitals: Assessment: Plan: * Treatment: * Images: * The named appointment provid er may or may not be the originator of this progress note, and it is not deemed complete until electronically signed by the appointment provider. Sign off status: Pending * Provider: Tabby Olsen MD Date: Generated for Vaishnavi delaney/Valentin/Wilda on: 03:05 PM EDT
--- OUTSIDE RECORDS SUMMARY | 2025-09-24 11:30 | XMS_ITS ---
Author Organization Mirza Olsen III, MD Address [address] [place] [address] [place] [address] Care Team Providers Care Resident Care Associate Name Role Phone Seble MCLAIN, [facility] Primary Care Provider Mirza Russo III Unavailable [phone] Dr. Mirza Olsen III Unavailable [phone] Allergies Allergen (clinical drug ingredient) Drug/Non Drug Allergy documented on EMR Reaction Allergy Type Onset Date Status metformin Metformin Unknown Drug Allergy Active lisinopril Lisinopril Unknown Drug Allergy Activ e Ferrous Sulfate Unknown Drug Allergy A ctive REASON FOR VISIT Anemia, Hypothyroidism, Hyperlipidemia, Diabetes Medications Medication SIG (Take, Route, Frequency, Duration) Notes Start Date End Date Status Ferrous Gluconate 324 (38 Fe) MG 1 tablet Orally Once a day Active metFORMIN HCl 1000 MG Oral Active OneTouch Ultra Test - In Vitro Active OneTouch Ultra Test - CHECK SUGARS TWICE A DAY In Vitro Active Amitriptyline HCl 10 MG 1 tablet at bedt angela Orally Once a day Active Losartan Potassium 25 MG 1 tablet Orally Once a day Active B-12 1000 MCG as directed Orally 03/16/2025 Active glipiZIDE ER 5 MG 1 tablet with food Orally Once a day Active FreeStyle Carly 3 Plus Sensor - Active Rosuvastatin Calcium 20 MG Oral Active Pepcid 40 MG 1 tablet Orally Once a day Active Social History Tobacco Use: Social History Observation Description Date Details (start date - stop date) Never Smoker NA - NA Sex Assigned At : Social History Observation Description Sex Assigned At Female Tobacco Use/Smoking Question Answer Notes Patient is a nonsmoker Problems Problem Type SNOMED Code ICD Code Onset Dates Problem Status W/U Status Risk Notes Problem 192021921 Hepatic steatosis (K76.0) Active confirmed This is a finding on a recent ultrasound ordered by gastroenterol mt. It is clearly nonalcoholic. Will be evaluated by GI. Vital Signs Temperature 98.0 degrees Fahrenheit 09/24/20 25 Blood pressure systolic 140 mm Hg 09/24/20 25 Blood pressure diastolic 82 mm Hg 025 Heart Rate 95 /min 09/24/2025 Height 58.5 in 09/24/2025 Weight 116 lbs 09/24/2025 BMI 23.83 kg/m2 09/24/2025 Encounters Encounter Location Date Provider Diagnosis Mirza Olsen III, MD [address] [place] [address] [place] [address] 09/24/2025 Mirza Olsen Anemia, unspecified type D64.9 ; Pure hypercholesterolemia, unspecified E78.00 ; Hypothyroidism, unspecified type E03.9 ; Type 2 diabetes mellitus without complication, unspecified whether intermediate project manager insulin use E11.9 and Hepatic steatosis K76.0 Assessments Encounter Date Diagnosis (ICD Code) Assessment Notes Treatment Notes Treatment Clinical Notes 09/24/2025 Anemia, unspecified type (ICD-10 - D64.9) She continues to have unacceptable hemoglobin and hematocrit. The mean cell volume is normal. Her white blood cell count is unremarkable. The differential is not available. Platelets are normal. Protein electrophoresis and hemoglobin electrophoresis of both within normal limits. The anemia is likely a combination of mild renal disease and iron deficiency due to chronic blood loss. Her ferritin is 21 while taking an iron supplement. [place] and will continue and she'll be followed carefully. 09/24/2025 Pure hypercholesterolem ia, unspecified (ICD-10 - E78.00) I recommended she have her lipids checked periodically. Current fasting lipid profile available at this time. 09/24/2025 Hypothyroidism, unspecified type (ICD-10 - E03.9) He has been compliant with her thyroid. She appears to be euthyroid today. 09/24/2025 Type 2 diabetes mellitus without complication, unspecified whether [facility] insulin use (ICD-10 - E11.9) Her hemoglobin A1c is at target at 7.1. The fasting glucose was elevated at 183. She has been compliant with her medication. 09/24/2025 Hepatic steatosis (ICD-10 - K76.0) This is a finding on a recent ultrasound ordered by gastroenterology. It is clearly nonalcoholic. Will be evaluated by GI. Plan Of Treatment Medication Medication Name Sig Start Date Stop Date Notes Ferrous Gluconate 324 (38 Fe) MG 1 tablet Orally Once a da y metFORMIN HCl 1000 MG Oral OneTouch Ultra Test - In Vitro OneTouch Ultra Test - CHECK SUGARS TWICE A DAY In Vitro Amitriptyline HCl 10 MG 1 tablet at bedt angela Orally Once a day Losartan Potassium 25 MG 1 tablet Orally Once a day B-12 1000 MCG as directed Orally 03/16/2025 glipiZIDE ER 5 MG 1 tablet with food O rally Once a day FreeStyle Carly 3 Plus Sensor - Rosuvastatin Calcium 20 MG Oral Pepcid 40 MG 1 tablet Orally Once a day Pending Test Test Name Order Date CBC w DIFF 09/24/2025 RETIC 09/24/2025 Ferritin 09/24/2025 Next Appt Details Follow Up: 6 Months, Reason: OV Provider Name:Mirza Olsen , 04/08/2026 03:00:00 PM, [address] [place] [address], [address], Progress Notes * CASTRO PETERSONIDOB:1955 (70 yo F)Acc No.[id number]:09/24/2025 Progress Notes Patient: VICENTE CALL Provider: Tabby Olsen MD :1955 A ge:70 Y S ex:Female Date:09/24/2025 Address:[address] [place] [address] Pcp:Dari Pruett MD Subjective: * Chief Complaints: * A nemiaHypothyroidismHyperlipidemiaDiabetes * HPI: C OVID-19 Screening: She returns to the office for ongoing management of her anemia. Blood work that was done September 07, 2025 showed glucose 183 BUN 18 creatinine 1.17 white count 9.3 white count 31.9 platelets 390 mean cell volume 86 hemoglobin electrophoresis within normal limits hemoglobin A1c 7.1 ferritin 21. A hemoglobin electrophoresis was within normal limits. She has been compliant with taking her iron supplements. She has had no bleeding. She feels generally well.An ultrasound that was done September 15, 2025 ordered by her market gardener Dr. Mirza Palencia showed hepatic steatosis. Questions H ave you had any new onset fever, chills, cough, congestion, sore throat, shortness of breath, muscle aches? 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 * Medications: T akingPepcid 40 MG Tablet 1 tablet Orally Once a day Losartan Potassium 25 MG Tablet 1 tablet Orally Once a day glipiZIDE ER 5 MG Tablet Extended Release 24 Hour 1 tablet with food Orally Once a day B-12 1000 MCG Capsule as directed Orally Rosuvastatin Calcium 20 MG Tablet Oral FreeStyle Carly 3 Plus Sensor - Miscellaneous metFORMIN HCl 1000 MG Tablet Oral Ferrous Gluconate 324 (38 Fe) MG Tablet 1 tablet Orally Once a day OneTouch Ultra Test - Strip CHECK SUGARS TWICE A DAY In Vitro OneTouch Ultra Test - Strip In Vitro Amitriptyline HCl 10 MG Tablet 1 tablet at bedtime Orally Once a day Taking Pepcid 40 MG Tablet 1 tablet Orally Once a day Taking Losartan Potassium 25 MG Tablet 1 tablet Orally Once a day Taking glipiZIDE ER 5 MG Tablet Extended Release 24 Hour 1 tablet with food Orally Once a day Taking B-12 1000 MCG Capsule as directed Orally Taking Rosuvastatin Calcium 20 MG Tablet Oral Taking FreeStyle Carly 3 Plus Sensor - Miscellaneous Taking metFORMIN HCl 1000 MG Tablet Oral Taking Ferrous Gluconate 324 (38 Fe) MG Tablet 1 tablet Orally Once a day Taking OneTouch Ultra Test - Strip CHECK SUGARS TWICE A DAY In Vitro Taking OneTouch Ultra Test - Strip In Vitro Taking Amitriptyline HCl 10 MG Tablet 1 tablet at bedtime Orally Once a day DiscontinuedLosartan Potassium-HCTZ 100-12.5 MG Tablet TAKE 1 TABLET BY MOUTH EVERY DAY Oral Pravastatin Sodium 20 MG Tablet Oral [facility] Vitamin B-12 1000 MCG Tablet TAKE 1 TABLET BY MOUTH EVERY DAY Oral Januvia 100 MG Tablet 1 tablet Orally Once a day Omeprazole 20 MG Capsule Delayed Release 1 capsule 30 minutes before morning meal Orally Once a day Biotin 5000 MCG Capsule 1 capsule Orally Once a day Pravastatin Sodium 80 MG Tablet 1 tablet Orally Once a day Medication List reviewed and reconciled with the patientDiscontinued Losartan Potassium-HCTZ 100-12.5 MG Tablet TAKE 1 TABLET BY MOUTH EVERY DAY Oral Discontinued Pravastatin Sodium 20 MG Tablet Oral Discontinued [facility] Vitamin B-12 1000 MCG Tablet TAKE 1 TABLET BY MOUTH EVERY DAY Oral Discontinued Januvia 100 MG Tablet 1 tablet Orally Once a day Discontinued Omeprazole 20 MG Capsule Delayed Release 1 capsule 30 minutes before morning meal Orally Once a day Discontinued Biotin 5000 MCG Capsule 1 capsule Orally Once a day Discontinued Pravastatin Sodium 80 MG Tablet 1 tablet Orally Once a day Medication List reviewed and reconciled with the patient * Allergies: M etformin: Side EffectsLisinopril: Side EffectsFerrous Sulfate: Side Effectsno[Allergies Verified] Objective: * Vitals: H t: 58.5, Wt:116, BMI:23.83, BP:140/82, HR:95, Temp:98.0, Ht-cm: 148.59, Wt-k.62. * Examination: G eneral Examination: GENERAL APPEARANCE: p tucker, well nourished, well developed, in no acute distress, calm and relaxed: woman. HEAD: a traumatic, normocephalic. EYES: e [...] LUNGS: c lear to auscultation . BREASTS: no masses palpable bilaterally. ABDOMEN: b owel sounds normal, no ascites, [...] type - D64.9 (Primary) N otes :She continues to have unacceptable hemoglobin and hematocrit. The mean cell volume is normal.? Her white blood cell count is unremarkable. The differential is not available. Platelets are normal. Protein electrophoresis and hemoglobin electrophoresis of both within normal limits. The anemia is likely a combination of mild renal disease and iron deficiency due to chronic blood loss. Her ferritin is 21 while taking an iron supplement. [place] and will continue and she'll be followed carefully. 2 . P ure hypercholesterolemia, unspecified - E78.00 N otes :I recommended she have her lipids checked periodically. Current fasting lipid profile available at this time. 3 . H ypothyroidism, unspecified type - E03.9 N otes :He has been compliant with her thyroid. She appears to be euthyroid today. 4 . T ype 2 diabetes mellitus without complication, unspecified whether [facility] insulin use - E11.9 N otes :Her hemoglobin A1c is at target at 7.1. The fasting glucose was elevated at 183. She has been compliant with her medication. 5 . H epatic steatosis - K76.0 N otes :This is a finding on a recent ultrasound ordered by gastroenterology. It is clearly nonalcoholic. Will be evaluated by GI. Plan: * Treatment: 2. P ure hypercholesterolemia, unspecified L AB: CBC w DIFF L AB: RETIC L AB: Ferritin 3. H ypothyroidism, unspecified type L AB: CBC w DIFF L AB: RETIC L AB: Ferritin 4. T ype 2 diabetes mellitus without complication, unspecified whether intermediate project manager insulin use L AB: CBC w DIFF L AB: RETIC L AB: Ferritin * Procedure Codes: * Preventive Medicine: DM [...] replace with more water. * Follow Up: 6 Months (Reason: OV) * Images: * Sign off status: Completed true * Provider: Tabby Olsen MD Date: Generated for Vaishnavi delaney/Valentin/eTjaceksmitting on: 03:05 PM EDT History and Physical Notes * HPI (History of Present Illness) Category Sub-Category Detail Notes COVID-19 Screening Questions Have you had any new onset fever, chills, cough, congestion, sore throat, shortness of breath, muscle aches?: No Examination Category Sub-Category Detail Notes General Examination GENERAL APPEARANCE: pleasant , well nourished, well developed, in no acute distress, calm and relaxed: woman HEAD: atraumatic, normocep halic EYES: eomi, [...] lesion s, anicteric PERIPHERAL PULSES: normal BREASTS: no masses palpable b ilaterally MUSCULOSKELETAL: extremities unremark able, no clubbing, cyanosis or edema LYMPH NODES: no enlarged lymph no deborah,spleen normal RECTAL EXAM: not examined PSYCH: alert, oriented ORAL CAVITY: normal, unremarkable
--- NOTE | ~2025-10-01 | MM_ITS ---
EXAMINATION: MM SCREENING DIGITAL BREAST TOMOSYNTHESIS, BILATERAL CLINICAL INFORMATION: Screening. Asymptomatic. COMPARISON: Mammography: Comparison is made with available priors TECHNIQUE: Digital breast mammography with tomosynthesis is performed in both the craniocaudal and mediolateral oblique views along with computer-aided detection (CAD). FINDINGS: There are scattered areas of fibroglandular density. There are no significant masses, abnormal calcifications, or other abnormalities. MM/MM tomosynthesis screening BI IMPRESSION: No mammographic evidence of malignancy. ASSESSMENT: BI-RADS Category 1: Negative RECOMMENDATION: Routine annual mammography screening. 1 year F/U This examination should not preclude the clinical evaluation of a suspicious palpable abnormality. This patient's information was entered into a reminder system with a target due date for their next mammogram. Electronically signed by: Asha Smith DO 10/05/2025 10:23 AM MELISSA
--- OUTSIDE RECORDS SUMMARY | 2025-10-01 15:05 | XMS_ITS | Patient Health Record ---
Author Organization Mirza Olsen III, MD Address [address] [place] [address] [place] [address] Care Team Providers Care Managed Care Coordinator Name Role Phone Seble MCLAIN, [facility] Primary Care Provider Mirza Russo III Unavailable [phone] Dr. Mirza Olsen III Unavailable Allergies Allergen [...] Start Date End Date Status Losartan Potassium 25 MG 1 tablet Orally Once a day Active Pepcid 40 MG 1 tablet Orally Once a day Active B-12 1000 MCG as directed Orally 03/16/2025 Active glipiZIDE ER 5 MG 1 tablet with food Orally Once a day Active FreeStyle Carly 3 Plus Sensor - Active Rosuvastatin Calcium 20 MG Oral Active Ferrous Gluconate 324 (38 Fe) MG 1 tablet Orally Once a day Active metFORMIN HCl 1000 MG Oral Active OneTouch Ultra Test - In Vitro Active OneTouch Ultra Test - CHECK SUGARS TWICE A DAY In Vitro Active Amitriptyline HCl 10 MG 1 tablet at bedt angela Orally Once a day Active Social History [...] Problem Status W/U Status Risk Notes Problem 660903901 Anemia, unspecified type (D64.9) Active confirmed She [...] is 21 while taking an iron supplement. OH and will continue and she'll be followed carefully. Problem [id number] Pure hypercholester olemia, unspecified (E78.00) Active confirmed I recommended s he have her lipids checked periodically. Current fasting lipid profile available at this time. Problem 79671857 Hypothyroidism , unspecified type (E03.9) Active confirmed He has been compliant with her thyroid. She appears to be euthyroid today. Problem 290615630 Type 2 diabetes mellitus without complication, unspecified whether halfway insulin use (E11.9) Active confirmed Her hemoglobin A1c is at target at 7.1. The fasting glucose was elevated at 183. She has been compliant with her medication. Problem 123377862 Hepatic steatosis (K76.0) Active confirmed This is a findi ng on a recent ultrasound ordered by gastroenterology. It is clearly nonalcoholic. Will be evaluated by GI. Vital Signs Heart Rate 95 /min 09/24/2025 Temperature 98.0 degrees Fahrenheit 09/24/2025 Blood pressure diastolic 82 mm Hg 09/24/2025 Height 58.5 in 09/24/2025 Blood pressure systolic 140 mm Hg 09/24/2025 Weight 116 lbs 09/24/2025 BMI 23.83 kg/m2 09/24/2025 Encounters Encounter Location Date Provider Diagnosis Mirza Olsen III, MD [address] [place] [address] [place] [address] 10/05/2024 Mirza Paredesrne Anemia, unspecified type D64.9 ; Type 2 diabetes mellitus without complication, unspecified whether long term care social worker insulin use E11.9 ; Hypothyroidism, unspecified type E03.9 and Pure hypercholesterolemia, unspecified E78.00 Mirza Olsen III, MD [address] [place] [address] [place] [address] 03/16/2025 Mirza Guptane Anemia, unspecified type D64.9 ; Type 2 diabetes mellitus without complication, unspecified whether long term care social worker insulin use E11.9 ; Pure hypercholesterolemia, unspecified E78.00 and Hypothyroidism, unspecified type E03.9 Mirza Olsen III, MD [address] [place] [address] [place] [address] 09/24/2025 Mirza Paredesrne Anemia, unspecified type D64.9 ; Pure hypercholesterolemia, unspecified E78.00 ; Hypothyroidism, unspecified type E03.9 ; Type 2 diabetes mellitus without complication, unspecified whether long term care social worker insulin use E11.9 and Hepatic steatosis K76.0 [...] 2 diabetes mellitus without complication, unspecified whether halfway insulin use (ICD-10 - E11.9) Her diabetes [...] 2 diabetes mellitus without complication, unspecified whether halfway insulin use (ICD-10 - E11.9) She was continued on her usual diabetic regimen. 09/24/2025 Anemia, unspecified type (ICD-10 - D64.9) [...] is 21 while taking an iron supplement. OH and will continue and she'll be followed carefully. 09/24/2025 Pure hypercholesterolem ia, unspecified (ICD-10 - E78.00) I recommended she have her lipids checked periodically. Current fasting lipid profile available at this time. 10/05/2024 Hypothyroidism, unspecified type (ICD-10 - E03.9) She appears to be euthyroid and will continue on current medications. 03/16/2025 Pure hypercholesterolem ia, unspecified (ICD-10 - E78.00) I recommended that she maintain her weight at this level and have her lipids checked 2 or 3 times a year. 09/24/2025 Hypothyroidism, unspecified type (ICD-10 - E03.9) He has been compliant with her thyroid. She appears to be euthyroid today. 10/05/2024 Pure hypercholesterolem ia, unspecified (ICD-10 - E78.00) I recommended that she maintain her weight at this level and have her lipids checked 2 or 3 times a year. 03/16/2025 Hypothyroidism, unspecified type (ICD-10 - E03.9) She appears to be euthyroid and will continue on current medications. 09/24/2025 Type 2 diabetes mellitus without complication, unspecified whether halfway insulin use (ICD-10 - E11.9) Her hemoglobin A1c is at target at 7.1. The fasting glucose was elevated at 183. She has been compliant with her medication. 09/24/2025 Hepatic steatosis (ICD-10 - K76.0) This is a finding on a recent ultrasound ordered by gastroenterology. It is clearly nonalcoholic. Will be evaluated by GI. Plan Of Treatment Pending Test Test Name Order Date PROFILE, FASTING (COMPREHENSIVE METABOLI C) 03/16/2025 CBC w DIFF 09/24/2025 CBC w DIFF 03/16/2025 RETIC 09/24/2025 Ferritin 09/24/2025 Ferritin 03/16/2025 Hemoglobin A1c 03/16/2025 Next Appt Details Provider Name:Mirza Olsen , 04/08/2026 03:00:00 PM, [address] [place] [address] DENIS GAUTAM, [place], [address], Insurance Providers Payer Name Payer Address Payer Phone Subscriber Number Group Number Insured Name Patient Relationship to Insured Coverage Start Date Coverage End Date [facility] [address] [place], [place] [id number] [phone] [id number] VICENTE PETERSON Self - patient is the insured MEDICARE NGS [address] [place] [address] [id number] VICENTE PETERSON Self - patient is the insured Medical (General) History Medical History History ICD Code Iron deficiency anemia Diabetes Osteoarthritis Degenerative disc disease cervical spine Hyperlipidemia Hypothyroid Fractured patella Osteoporosis Vitamin D deficiency Gout Lumbar spondylosis Hysterectomy 1986 Surgical History Surgery Date(Month/Year) Hysterectomy 1986 Repair fracture of patella 1995
--- OUTSIDE RECORDS SUMMARY | 2025-10-01 15:05 | XMS_ITS | Patient Health Record ---
Author Organization [facility] Address [address] [place] [address] Care Team Providers Care Reports Analyst Name Role Phone Dari Pruett Primary Care Provider Unavailab Mirza Esparza [phone] Allergies Allergen (clinical drug ingredient) Drug/Non Drug Allergy documented on EMR Reaction Allergy Type Onset Date Status metformin Metformin HCl DIARRHEA Drug Allergy Act chico lisinopril Lisinopril COUGH Drug Allergy Activ e Results Component Value Reference Range Notes Liver Panel Reviewed date:08/15/2025 09:59:11 AM Interpretation: Performing Lab:[facility], [address] [place] [id number] Notes/Report: Bilirubin Total 0.2 0.0-1.0 mg/dL Bilirubin Direct < 0.2 0.0-0.5 mg/dL Aspartate Amino Transferase 26 5-31 U/L Alanine Aminotransferase 27 0-31 U/L Total Protein 7.3 6.5-8.0 g/dL Albumin Level 4.3 3.5-5.0 g/dL Alkaline Phosphatase 75 39-117 U/L US abdomen complete (Not yet reviewed by provider) Interpretation: Performing Lab: Notes/Report: [address] [address] Ultrasound Report Signed Patient: Ana Montenegro MR#: [id number] : 1955 Acct:[id number] Age/Sex: 70 / F ADM Date: 09/17/25 Loc: HO.US Attending Dr: Mirza Palencia MD Ordering Physician: Mirza Palencia MD Date of Service: 09/17/25 Procedure(s): US abdomen complete Accession Number(s): [id number] cc: Dari Pruett MD; Mirza Palencia MD Reason for Exam: EPIGASTRIC BURNING CLINICAL HISTORY: EPIGASTRIC BURNING --- Additional Notes or Special Instructions: WO US abdomen complete Comparison: None provided Findings: The visualized pancreas is normal. The aorta and inferior vena cava are normal caliber. The liver is normal in size and homogeneous hyperechoic. There is no intrahepatic bile duct dilatation. The common duct is 6 mm in diameter. The gallbladder is normal. There is no sonographic Edward sign. The main portal vein is antegrade. The right kidney is 9.1 cm in length. The left kidney is 9.4 cm in length. The spleen is normal. 9.1 cm. No ascites. IMPRESSION: 1. Hepatic steatosis; nonalcoholic steatohepatitis versus viral hepatitis. This document has been electronically signed by: Virgil Rousseau MD on 09/18/2025 18:11:03 Dictated By: Virgil Rousseau MD Signed By: <Electronically signed by Virgil Rousseau MD in OV> 09/18/251810 DD/ 10 TD/TT: 09/18/251810 Contact Lens Inspector: Reason For Referral No Information Medications Medication [...] Famotidine 40 MG 1 tablet Orally Twic a day--every morning and every late afternoon/early [...] Problem Screening for malignant neoplasm of colon (519985191) Encounter for screening for malignant neoplasm of colon (Z12.11) Active confirmed Problem Epigastric pain (58637754) Abdominal pain, epigastric (R10.13) Active confirmed Problem Gastroesophageal reflux disease without esophagitis (485475323) Gastroesophageal reflux disease without esophagitis (K21.9) Active confirmed Problem Gastroesophageal reflux disease (207316304) Gastroesophageal reflux disease, esophagitis presence not specified (K21.9) Active confirmed Problem Anemia (060371174) Anemia (D64.9) Active confir med Problem Gastroesophageal reflux disease (722333583) GERD (gastroesophageal reflux disease) (K21.9) Active confirmed Problem Epigastric pain (59257862) Epigastric burning sensation (R10.13) Active confirmed Vital Signs Temperature 97.7 degrees Fahrenheit 07/27/2025 Blood pressure diastolic 01 mm Hg 07/27/2025 Height 59 in 07/27/2025 Blood pressure systolic 001 mm Hg 07/27/2025 Weight 117.6 lbs 07/27/2025 BMI 23.75 kg/m2 07/27/2025 Encounters Encounter Location Date Provider Diagnosis [facility] [address] [place] [address] 07/27/2025 Mirza Palencia Anemia D64.9 ; GERD (gastroesophageal reflux disease) K21.9 and Epigastric burning sensation R10.13 [facility] [address] [place] [address] 08/15/2025 Mirza Palencia Assessments Encounter Date Diagnosis [...] stop omeprazole. She describes that when her table filler had told her to stop the famotidine she had also been on omeprazole at that time and he had advised her that she did not need both medications at that time. I advised her that I think that was a quite reasonable recommendation. Prior to increasing the dose of omeprazole to 40 mg daily, which the table filler may not want given her renal insufficiency, [...] stop omeprazole. She describes that when her table filler had told her to stop the famotidine she had also been on omeprazole at that time and he had advised her that she did not need both medications at that time. I advised her that I think that was a quite reasonable recommendation. Prior to increasing the dose of omeprazole to 40 mg daily, which the table filler may not want given her renal insufficiency, [...] stop omeprazole. She describes that when her table filler had told her to stop the famotidine she had also been on omeprazole at that time and he had advised her that she did not need both medications at that time. I advised her that I think that was a quite reasonable recommendation. Prior to increasing the dose of omeprazole to 40 mg daily, which the table filler may not want given her renal insufficiency, [...] and Folate 07/27/2025 US abdomen complete 07/27/2025 US abdomen complete 09/18/2025 Future Test Test Name Order Date UPPER GI ENDOSCOPY 07/22/2018 COLONOSCOPY 07/22/2018 Next Appt Details Provider Name:Mirza Haydee Palencia , 11/09/2025 11:10:00 AM, [address] [place] [address], [address], [place], [address], Insurance Providers Payer Name Payer Address Payer Phone Subscriber Number Group Number Insured Name Patient Relationship to Insured Coverage Start Date Coverage End Date [facility] [address] [place] [address] [id number] ANA MONTENEGRO Self - patient is the insured Medical (General) History Medical History History ICD Code NIDDM Hypertension Denies CO,CVA,Lung disease,renal disease GERD- EGD in August revealed [...] ultrasound in 2017 Surgical History Surgery Date(Month/Year) Cataracts CAROL Left patella knee surgery 1996
== END 2025-10-01 14:31 | disposition home or self-care (01) ==
LOC: HO.MAMMO 14:30
PROVIDERS: PCP Internal Medicine; Visit Provider Internal Medicine
DX: Z12.31 Encounter for screening mammogram for malignant neoplasm of breast (principal)
CPT/HCPCS: 77063; 77067

== ENCOUNTER 2025-11-01 11:02 | Outpatient (REF) | payer BC, SELFPAY ==
[2025-11-01 11:48] LABS: Hematocrit 30.7 % (37.0-47.0); Hemoglobin 10.4 g/dl (12.0-16.0); Mean Corpuscular HGB Conc 33.9 g/dl (31.0-35.0); Mean Corpuscular Hemoglobin 27.2 pg (27.0-33.0); Mean Corpuscular Volume 80.4 fL (80.0-98.0); NRBC Abs Auto 0.000 X10*3/uL (0.0-0.012); NRBC Pct Auto 0.0 /100WBC (0.0-0.2); Platelet Count 354 X10*3/uL (160-400); Red Blood Count 3.82 X10*6/uL (4.20-5.50); White Blood Count 10.4 X10*3/uL (4.8-10.8)
[2025-11-01 12:30] LABS: Anion Gap 14 (12-20); Blood Urea Nitrogen 22 mg/dL (9-16); Calcium 9.6 mg/dL (8.4-10.2); Carbon Dioxide 25 mmol/L (22-29); Chloride 104 mmol/L (96-108); Estimated Glomerular Filt Rate 44; Potassium 4.2 mmol/L (3.3-5.1); Sodium 139 mmol/L (135-145)
== END 2025-11-01 11:03 | disposition home or self-care (01) ==
LOC: HO.LAB 11:02
PROVIDERS: Internal Medicine Hypertension Specialist; PCP Internal Medicine; Visit Provider Internal Medicine
DX: N18.9 Chronic kidney disease, unspecified (principal)
CPT/HCPCS: 36415; 80048; 85027

== ENCOUNTER 2025-11-09 13:45 | Outpatient (AMB) | payer BC, SELFPAY ==
--- NOTE | 2025-11-09 13:49 | HO.NEPHOV ---
Vital Signs 11/09/25 13:50 11/09/25 14:06 Height 5 ft Weight 114 lb BMI 22.3 BP 156/84 H 130/80 Blood Pressure Location Rt brachial Rt radial Position Sitting Sitting Pulse 95 Pulse Source Pulse Oximeter Pulse Oximetry (%) 94 Oxygen Delivery Method Room Air Intake Visit Reasons: Dec f/u w/labs Associate Professor Of Automation Required: No Accompanied by: Spouse Allergies No Known Allergies (No Known Allergies*) Allergy (Verified 11/09/25 13:51) Medication List - Last Reconciled 11/09/25 by Stefan Vu MD amitriptyline 25 mg PO BEDTIME aspirin 81 mg PO DAILY cholecalciferol (vitamin D3) 25 mcg PO DAILY cyanocobalamin (vitamin B-12) ER 1,000 mcg PO DAILY famotidine 40 mg PO BID ferrous gluconate 324 mg PO DAILY glipizide ER 2.5 mg PO DAILY losartan 25 mg PO DAILY metformin 1,000 mg PO BID omeprazole 20 mg PO DAILY rosuvastatin 20 mg PO DAILY HPI Comments Details: History of Present Illness The patient is a 70 year old female presenting for a follow-up visit for management of mild chronic kidney disease and long-standing diabetes mellitus. Her medical history is significant for hypertension, for which she takes losartan 25 mg daily. She does not consistently monitor her blood pressure at home, but reports it is sometimes 135 mmHg. For her diabetes, she takes metformin and glipizide and reports her blood sugars are good and under control. Her kidney function is noted to be stable with a creatinine of 1.2, which is an improvement from prior values. Her hemoglobin has improved from 9.6 to 10.4. The patient denies any trouble with urination or breathing. Her weight is stable at 114 pounds, compared to 117 pounds at her last visit. She has a colonoscopy planned with Dr. Palencia. REPLACED BY [facility] Medical History Diabetes Social History Patient Tobacco Use Status: Never used Tobacco Current occupational status: retired Current occupation: right hand dominant Physical Exam Exam Exam: Physical Exam General: Awake. Comfortable. HENT: Neck supple. Mucosa moist. Pulmonary: Lungs aeration equal. No rales. Cardiology: Heart S1-S2 heard. No gallop. Abdomen: Soft. Non tender. Bowel sounds normal. Neurologic: No involuntary movements. No myoclonus. Extremities: No edema. No rash. Vital Signs: Last Vital Signs Pulse 95 11/09/25 13:50 BP 130/80 11/09/25 14:06 Pulse Ox 94 11/09/25 13:50 Oxygen Delivery Method Room Air 11/09/25 13:50 BMI result Body Mass Index 22.3 Results Reviewed Nephrology Results: Hgb, (12.0-16.0) 10.4 g/dl L 11/01/25 WBC, (4.8-10.8) 10.4 X10*3/uL 11/01/25 Plt Count, (160-400) 354 X10*3/uL 11/01/25 Sodium, (135-145) 139 mmol/L 11/01/25 Potassium, (3.3-5.1) 4.2 mmol/L 11/01/25 Chloride, (96-108) 104 mmol/L 11/01/25 Carbon Dioxide, (22-29) 25 mmol/L 11/01/25 BUN, (9-16) 22 mg/dL H 11/01/25 Creatinine, (0.5-1.4) 1.21 mg/dL 11/01/25 Calcium, (8.4-10.2) 9.6 mg/dL 11/01/25 Assessment & Plan Assessment & Plan (1) CKD (chronic kidney disease): Code(s): N18.9 - Chronic kidney disease, unspecified Category: Medical Plan: CKD 3 most likely due to underlying diabetic kidney disease. She probably has a component of acute kidney injury most likely due to hypoperfusion. No reason to believe that she has any active glomerular nephritis or interstitial disease at this time. Obstructive uropathy seems unlikely. Hypoperfusion most likely due to relatively low blood pressure as well as the use of ARB with HCTZ. (2) Anemia: Comment: Multifactorial. Rule out iron deficiency / rule out erythropoietin deficiency Code(s): D64.9 - Anemia, unspecified Category: Medical Plan Plan 1. Chronic Kidney Disease - The patient's kidney function is stable with a creatinine of 1.2, which is consistent with her last visit and improved from previous levels. Hypertensive diabetic kidney disease No significant proteinuria. No obstruction on ultrasound. - No changes will be made to her current medication regimen. - The patient was advised to drink plenty of water and reduce salt intake. - Follow-up is scheduled for 6 months. 2. Hypertension - The patient's blood pressure was rechecked and found to be 130/80 mmHg in the office. - She will continue taking losartan 25 mg. - The patient was instructed to monitor her blood pressure at home at least once a week, record the readings, and ensure it remains below 140 mmHg. 3. Type 2 Diabetes Mellitus - While the patient reports good glycemic control at home, a recent lab result showed a blood sugar of 199 mg/dL. - She will continue her current medications, metformin and glipizide, with no changes at this time. 4. Anemia - The patient's hemoglobin has shown improvement, increasing from 9.6 to 10.4 g/dL. - Current management will be continued with no changes. - f/u with dr. Olsen Orders: Orders Complete Blood Count no Diff 6 Months N18.9 - Chronic kidney disease, unspecified UA and rflx microscopic 6 Months N18.9 - Chronic kidney disease, unspecified Creatinine Urine 6 Months N18.9 - Chronic kidney disease, unspecified Basic Metabolic Panel 6 Months N18.9 - Chronic kidney disease, unspecified Total Protein Urine Random 6 Months N18.9 - Chronic kidney disease, unspecified Coding Level of Care Code Est Pt Level 4 (35777) Diagnoses CKD (chronic kidney disease) N18.9 Anemia D64.9
[2025-11-09 13:50] VITALS: BP 156/84; PULSE 95; O2SAT 94; BMI 22.3
[2025-11-09 14:06] VITALS: BP 130/80
== END 2025-11-09 14:11 | disposition home or self-care (01) ==
LOC: HO.HKA 13:46
PROVIDERS: PCP Internal Medicine; Visit Provider Internal Medicine Hypertension Specialist
DX: N18.9 Chronic kidney disease, unspecified (principal); D64.9 Anemia, unspecified
CPT/HCPCS: 99214